=== PATIENT | male | born 1980 | race Caucasian/White ===

== ENCOUNTER 2016-07-31 15:59 | Emergency (ER) | payer MEDICAID ==
[~2016-07-31] VITALS: Ht 182.9 cm; Wt 67.9 kg
[~2016-07-31 15:59] MED LIST: HYOS0.122 PO; NO ROUTINE MEDS; ONDA4TAB7 PO
[2016-07-31 16:02] VITALS: Ht 182.9 cm; Wt 67.9 kg
--- OUTSIDE RECORDS SUMMARY | 2016-07-31 16:02 | XMS REPORT ---
Author Author Kasie Robbins [facility] eClinicalWorks Address Unknown Phone Unavailable Care Team Providers Care Napper Fixer Name Role Phone Kasie Robbins CP Unavailable Allergies No Known Allergies Problems Problem Type Condition Code Onset Dates Condition Status Problem Tobacco use disorder 305.1 Active Problem Bipolar disorder, unspecified F31.9 Active Problem Post-traumatic stress disorder, unspecified F43.10 Active Problem Anxiety disorder, unspecified F41.9 Active Medications No Known Medications Results No Known Results Summary Purpose eClinicalWorks Submission
--- OUTSIDE RECORDS SUMMARY | 2016-07-31 16:02 | XMS REPORT ---
Author Author Milla Rogers [facility] eClinicalWorks Address Unknown Phone Unavailable Care Team Providers Care Game Developer Name Role Phone Milla Rogers CP Unavailable Allergies No Known Allergies Problems Problem Type Condition Code Onset Dates Condition Status Problem Tobacco use disorder 305.1 Active Problem Bipolar disorder, unspecified F31.9 Active Problem Post-traumatic stress disorder, unspecified F43.10 Active Problem Anxiety disorder, unspecified F41.9 Active Medications No Known Medications Results No Known Results Summary Purpose eClinicalWorks Submission
--- OUTSIDE RECORDS SUMMARY | 2016-07-31 16:02 | XMS REPORT | Referral Summary ---
Author Author [facility] Organization [facility] Address Unknown Phone Unavailable Care Team Providers Care Professor Of Latin American Studies Name Role Phone Rocky Calloway Primary Care Physician [phone] Encounter [facility] [id number] Date(s): 04/18/15 - 04/18/15 [facility] [address] [place] [address] [place] Queved[place] [id number] Discharge Diagnosis: S/P lymph node biopsy Discharge Disposition: 01-Home or Self Care Attending Physician: Blaze Barrera MD Admitting Physician: Blaze Barrera MD Vital Signs Most recent to 1 oldest [Reference Range]: Temperature Tympanic 36.4 degC [36.6-38.1 degC] *LOW* (04/18/15 11:19 AM) Problem List Condition Effective Dates Status Health Status Informant Bipolar affect, Active depressed(Confirmed) PTSD (post-traumatic Active stress disorder)(Confirmed) Schizoaffective Active schizophrenia(Confir med) Tobacco Active patient user(Confirmed) Allergies, Adverse Reactions, Alerts Substance Reaction Severity Status morphine Adverse Reaction N V Active hallucinations Medications Flonase 2 sprays, Nasal, Daily, 0 Refill(s) Start Date: 05/16/14 Status: Ordered SEROquel 300 mg oral tablet 1 tabs, Oral, TID, 0 Refill(s) Start Date: 05/16/14 Status: Ordered traMADol 100 mg, Oral, Daily, Takes 150 mg at HS, 0 Refill(s) Start Date: 05/16/14 Status: Ordered Results No data available for this section Immunizations No data available for this section Procedures Procedure Date Related Diagnosis Body Site Acromioplasty1 09/01/07 Mini Incision Bursal Approach2 09/01/07 1Rt Shoulder Initally "Arthroscopic Examination Of Right Glenohumeral Joint With Partial Debridement of Subacromial Space Arthroscopically and Exposure Of The Coracoarcromial Ligament. The Procedure Was Switched To A Mini Incision Bursal Approach and Acromioplasty Was Carried Out With Section Of The Coracoacromial Ligament. DOS. See Conversion Document. 2Rt Shoulder Initally "Arthroscopic Examination Of Right Glenohumeral Joint With Partial Debridement of Subacromial Space Arthroscopically and Exposure Of The Coracoarcromial Ligament. The Procedure Was Switched To A Mini Incision Bursal Approach and Acromioplasty Was Carried Out With Section Of The Coracoacromial Ligament. DOS. See Conversion Document. Social History Social History Type Response Smoking Status Current every day smoker; Type: E-Cigarette Assessment and Plan Extracted from: Title: Office Visit Note Author: Monica Kay ENGLISH TUTOR Date: 04/18/15 Assessment/Plan 1.S/P lymph node biopsy Pathology, as called to you, is positive for a likely had scratched lymphadenitis. No sign of lymphoma or other concerns. There may always be a certain component of numbness "below" the incision. I am not surprised that the area below the incision is still somewhat tender/ bruised feeling. This discomfort should continue to improve over the next several weeks. Do not hesitate to return to our office if you have any questions or concerns. Continue with your general medical care through your primary care provider. Ordered: Postoperative Est 80122
--- OUTSIDE RECORDS SUMMARY | 2016-07-31 16:02 | XMS REPORT ---
Author Author Elma Chavez [facility] eClinicalWorks Address Unknown Phone Unavailable Care Team Providers Care Executive Administrative Asst Name Role Phone Elma Chavez CP Unavailable Allergies No Known Allergies Problems Problem Type Condition ICD-9 Code Onset Dates Condition Status Problem Posttraumatic stress disorder 309.81 Active Problem Anxiety state, unspecified 300.00 Active Problem Bipolar disorder, unspecified 296.80 Active Assessment Thyrotoxicosis without mention of goiter or other cause, without mention of thyrotoxic crisis or storm 242.90 Active Medications No Known Medications Procedures Procedure Coding System Code Date THYROID AUTOANTIBODIES 1 CPT-4 48260 November 29, 2014 THYROID AUTOANTIBODIES 2 CPT-4 28919 November 29, 2014 Results No Known Results Summary Purpose [employer] Submission
--- OUTSIDE RECORDS SUMMARY | 2016-07-31 16:02 | XMS REPORT ---
Author Author Johanna Lopez [facility] eClinicalWorks Address Unknown Phone Unavailable Care Team Providers Care Gang Leader Name Role Phone Johanna Lopez CP Unavailable Allergies, Adverse Reactions, Alerts Substance Reaction Event Type Morphine Sulfate nausea and vomiting Drug Allergy Problems Problem Type Condition ICD-9 Code Onset Dates Condition Status Problem Bipolar disorder, unspecified 296.80 Active Problem Posttraumatic stress disorder 309.81 Active Problem Tobacco use disorder 305.1 Active Assessment Other antipsychotics, neuroleptics, and major tranquilizers causing adverse effect in therapeutic use E939.3 Active Assessment Tobacco use disorder 305.1 Active Problem Anxiety state, unspecified 300.00 Active Assessment 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
--- OUTSIDE RECORDS SUMMARY | 2016-07-31 16:03 | XMS REPORT ---
Author Author Milla Rogers [facility] eClinicalWorks Address Unknown Phone Unavailable Care Team Providers Care Edge Bander Hand Name Role Phone Milla Rogers CP Unavailable Allergies No Known Allergies Problems Problem Type Condition Code Onset Dates Condition Status Problem Bipolar disorder, unspecified F31.9 Active Problem Anxiety disorder, unspecified F41.9 Active Problem Tobacco use disorder 305.1 Active Assessment Post-traumatic stress disorder, unspecified F43.10 Active Assessment Bipolar disorder, unspecified F31.9 Active Assessment Anxiety disorder, unspecified F41.9 Active Medications No Known Medications Procedures Procedure Coding System Code Date DUMMY CODE FOR NURSE VISIT CPT-4 DUMMY Dec 22, 2014 Results No Known Results Summary Purpose eClinicalWorks Submission
--- OUTSIDE RECORDS SUMMARY | 2016-07-31 16:03 | XMS REPORT | Referral Summary ---
Author Author [facility] Organization [facility] Address Unknown Phone Unavailable Care Team Providers Care Sleeve Turner Name Role Phone Rocky Calloway Primary Care Physician [phone] Encounter [facility] [id number] Date(s): 04/03/15 - 04/03/15 [facility] [address] [place] [address] [place] Queved[place] [id number] Discharge Diagnosis: Inguinal mass Discharge Disposition: 01-Home or Self Care Attending Physician: Blaze Barrera MD Admitting Physician: Blaze Barrera MD Vital Signs Most recent to 1 oldest [Reference Range]: Temperature Tympanic 36.8 degC [36.6-38.1 degC] (04/03/15 1:45 PM) Blood Pressure 112/66 mmHg [90-140/60-90 mmHg] (04/03/15 1:45 PM) Problem List Condition Effective Dates Status Health Status Informant Bipolar affect, Active depressed(Confirmed) PTSD (post-traumatic Active stress disorder)(Confirmed) Schizoaffective Active schizophrenia(Confir med) Tobacco Active patient user(Confirmed) Allergies, Adverse Reactions, Alerts Substance Reaction Severity Status morphine Adverse Reaction N V Active hallucinations Medications azithromycin 250 mg oral tablet 1 tabs, Oral, Daily, 500 mg for day one, then 250 mg for 4 days., # 4 tabs, 0 Refill(s), Pharmacy: [id number], 1 tabs Oral Daily,Instr:500 mg for day one, then 250 mg for 4 days. Start Date: 04/03/15 Status: Ordered azithromycin 500 mg oral tablet 500 mg 1 tabs, Oral, Daily, X 1 days, # 1 tabs, 0 Refill(s), Pharmacy: [id number], 1 tabs Oral Daily,x1 days Start Date: 04/03/15 Stop Date: 04/04/15 Status: Ordered Flonase 2 sprays, Nasal, Daily, 0 Refill(s) [...] Extracted from: Title: Office Visit Note Author: Blaze Barrera MD Date: 04/03/15 Assessment/Plan 1.Inguinal mass CT with oral and IV contrast Ordered: CT Abdomen Pelvis w/ Contrast Office New Consult Level 4 [id number] Orders: azithromycin, 1 tabs, Oral, Daily, 500 mg for day one, then 250 mg for 4 days., # 4 tabs, 0 Refill(s), Pharmacy: [id number], 1 tabs Oral Daily,Instr:500 mg for day one, then 250 mg for 4 days. azithromycin, 500 mg 1 tabs, Oral, Daily, X 1 days, # 1 tabs, 0 Refill(s), Pharmacy: [id number], 1 tabs Oral Daily,x1 days Plan:CT scan of abdomen pelvis with attention focused to leftmedial thigh/ inguinal region. Empiric treatment for possiblecat scratch disease. I did review the patient's chartincluding a recentER visit from March 30, 2015. I informed the patient that I did not think that he had a femoral herniasecondary to the anatomic location of thismass well below the inguinal ligamentand involving the leftmedial thigh region. Upon palpation I am able to appreciate several enlarged lymph nodes. I informed the patient that I would like to proceed with some further evaluation consisting of a CT scan of his abdomen pelviswith extension of the CT scan to hismedial thigh region. Recommend that we place askin marker overlying the palpable area of concern. Perhaps the patient does have a femoral hernia but I feel that this is unlikelygiven the fact the massis not present medial to the femoral vessels just beneath the inguinal ligamentas one typically would seewith a femoral hernia. We will await the CT scan results and proceed accordingly. I have had a few cases similarto this in the past where aindividual had presented with a firm massbeneath the inguinal ligamentthat was secondary toBartonella/cat scratch disease. I therefore elected to go ahead and treat him empiricallywith azithromycin/Z-Mart. As abovewe will await his CT scan results and proceed accordingly.
--- OUTSIDE RECORDS SUMMARY | 2016-07-31 16:03 | XMS REPORT | Continuity of Care Document ---
Author Author [facility] Organization [facility] Address Unknown Phone Unavailable Allergies Active Description Code Type Severity Reaction Onset Reported/Identified Relationship to Patient Clinical Status Yes morphine NKMA N/A Adverse Reaction N V hallucina 08/30/2013 Medications Problems Procedures Results Encounters ACCT No. Visit Date/Time Discharge Status Pt. Type Provider Facility Loc./Unit Complaint [id number] 04/11/2015 14:57:00 2014 23:59:00 DIS Outpatient Blaze Barrera [facility] EVAL. SURGICAL SITE L THIGH [id number] 04/03/2015 13:34:00 2014 23:59:00 DIS Outpatient Blaze Barrera [facility] HERNIA- ER LAST NIGHT. [id number] 05/16/2014 17:05:00 2014 23:59:00 DIS Outpatient Savannah Shah [facility] New IC CHEST CONGESTION,STUFFY NOSE BODY WEAKNESS [id number] 04/18/2015 11:10:00 ACT Outpatient Blaze Barrera [facility] Post Op
--- OUTSIDE RECORDS SUMMARY | 2016-07-31 16:03 | XMS REPORT | Continuity of Care Document ---
Author Author Lorenzo [facility] Organization [facility] Address Unknown Phone Unavailable Support Name Relationship Address Phone PRATIBHA SIDDIQUI MD Caregiver [address] [place] [address] [place] [address] Ricardo MERCER MD Caregiver [address] [place], [place] [id number] CRISTIAN PULIDO Next Of Kin [address] [place] [address] Insurance Providers Payer Name Policy Number Subscriber Name Relationship Self Pay Charissa Vu 18 Self Advance Directives Directive Response Recorded Date/Time Advanced Directives Type None 10/11/13 11:50am Dr Phillip Resuscitation Status Full Code 10/11/13 1:23pm Problems Medical Problems Problem Onset Date Status Nausea with Vomiting Unknown Active Headache Unknown Active Malaise and Fatigue not elsewhere classified Unknown Active Myalgia Unknown Active Hand paresthesia Unknown Active Hand paresthesia Unknown Active Penile discharge Unknown Active Viral syndrome Unknown Active Viral syndrome Unknown Active Medications Medication Dose Route Sig Days/Qty Instructions Order Date Discontinued Date Status Propoxyphene/Acetaminophen 1 Tab PO TWICE A DAY 03/20/10 10/13/10 Discontinued Metaxalone 1 Tab PO TWICE A DAY 03/20/10 10/13/10 Discontinued Divalproex Sodium 1 Tab PO DAILY 03/20/10 10/13/10 Discontinued Butalb/Acetaminophen/Caffeine 1 Tab PO NEEDED 10/13/10 07/12/12 Discontinued Fluticasone Propionate EA NOSTRIL DAILY 08/31/11 Active [Seroquel] PO 08/31/11 07/12/12 Discontinued Quetiapine Fumarate 900 Mg PO THREE TIMES A DAY 10/11/13 Active Trazodone HCl PO BEDTIME 03/24/14 Active Social History Social History Problem Response Recorded Date/Time Smoking Status Former smoker 10/12/2013 6:10am Chewing Tobacco Status No 10/12/2013 6:10am Hx Substance Use No 03/24/2014 3:29pm Hx Alcohol Use No 03/24/2014 3:29pm Has the pt used tobacco in the last 12 months Yes 10/12/2013 6:10am Query Response Start Date Stop Date Smoking Status Current every day smoker Hospital Discharge Instructions No hospital discharge instructions. Plan of Care No plan of care. Functional Status Query Response Date Recorded Physical Hygiene Self March 24, 2014 3:29pm Disabilities None March 24, 2014 3:29pm Devices Used Glasses March 24, 2014 3:29pm Dressing Self March 24, 2014 3:29pm Ambulation Self March 24, 2014 3:29pm Diet Self March 24, 2014 3:29pm Mental Status Alert Oriented March 24, 2014 4:11pm Disabilities None March 24, 2014 3:29pm Devices Used Glasses March 24, 2014 3:29pm Physical Hygiene Self March 24, 2014 3:29pm Dressing Self March 24, 2014 3:29pm Ambulation Self March 24, 2014 3:29pm Diet Self March 24, 2014 3:29pm Allergies, Adverse Reactions, Alerts Allergen Type Severity Reaction Status Last Updated Morphine Allergy Unknown Active 07/22/13 Immunizations Name Given Type Hx Influenza Vaccination Y feb 2013 Historical Hx Pneumococcal Vaccination No Historical Hx Tetanus, Diptheria, Pertussis Y 2007 Historical Hx Influenza Vaccination Y feb 2013 Historical Hx Tetanus, Diptheria, Pertussis Y 2007 Historical Vital Signs Acute Vital Signs Vital Response Date/Time Temperature (Fahrenheit) 97.2 deg F (96.8 - 99.1) Temperature (Calculated Celsius) 36.05876 degrees C (36.0 - 37.3) Pulse Rate (adult) 96 bpm (60 - 100) Respiratory Rate 16 breaths/min (10 - 20) O2 Sat by Pulse Oximetry 96 % (90 - 100) Blood Pressure 138/90 mm Hg Height 6 ft 1 in Weight 170 lb Body Mass Index 22.0 kg/m^2 Results Test Source Date Result Interp. Ref. Range Comments Group A Streptococcus Screen March 24, 2014 3:28pm Negative - Strep culture confirmation to follow Influenza Type A Antigen March 24, 2014 3:23pm Negative - Negative for Flu A protein antigen. Assay sensitivity is90%. Influenza Type B Antigen March 24, 2014 3:23pm Negative - Negative for Flu B protein antigen. Assay sensitivity is90%. Urine Bacteria February 10, 2014 3:20pm 2+ H - Has specimen been collected/obtained? Y Urine Bilirubin February 10, 2014 3:20pm Negative - Has specimen been collected/obtained? Y Urine Blood February 10, 2014 3:20pm 1+ H - Has specimen been collected/ obtained? Y Urine Calcium Oxalate Crystals February 10, 2014 3:20pm Many - Has specimen been collected/obtained? Y Urine Collection Type February 10, 2014 3:20pm Voided-not cc-midstr - Has specimen been collected/obtained? Y Urine Color February 10, 2014 3:20pm Yellow - Has specimen been collected/obtained? Y Urine Culture Indicated February 10, 2014 3:20pm Cult reflexed &setup - Has specimen been collected/obtained? Y Urine Glucose (UA) February 10, 2014 3:20pm Negative - Has specimen been collected/obtained? Y Urine Ketones February 10, 2014 3:20pm Negative - Has specimen been collected/obtained? Y Urine Leukocyte Esterase February 10, 2014 3:20pm Negative - Has specimen been collected/obtained? Y Urine Mucus February 10, 2014 3:20pm Present - Has specimen been collected/obtained? Y Urine Nitrite February 10, 2014 3:20pm Negative - Has specimen been collected/obtained? Y Urine Protein February 10, 2014 3:20pm Negative - Has specimen been collected/obtained? Y Urine RBC February 10, 2014 3:20pm 10-20 /HPF H - Has specimen been collected/obtained? Y Urine Specific [place] February 10, 2014 3:20pm >=1.030 H - Has specimen been collected/obtained? Y Urine Squamous Epithelial Cells February 10, 2014 3:20pm 0-5 - Has specimen been collected/obtained? Y Urine Turbidity February 10, 2014 3:20pm Sl cloudy - Has specimen been collected/obtained? Y Urine Urobilinogen February 10, 2014 3:20pm 0.2 EU/DL - Has specimen been collected/obtained? Y Urine WBC February 10, 2014 3:20pm 10-20 /HPF H - Has specimen been collected/obtained? Y Urine pH February 10, 2014 3:20pm 6.0 - Has specimen been collected/ obtained? Y Gram Stain Penis February 10, 2014 3:40pm Urine Culture Urine, Voided-Not Cc-Midstream February 10, 2014 4:02pm Mixed Sherin Prob. Contaminants Procedures No known history of procedures. Encounters Encounter Location Date/Time Departed Emergency Room [facility] 03/24/14 2:51pm Departed Emergency Room [facility] 02/10/14 3:06pm Recent Diagnosis
--- OUTSIDE RECORDS SUMMARY | 2016-07-31 16:03 | XMS REPORT ---
Author Author Elma Chavez [facility] eClinicalWorks Address Unknown Phone Unavailable Care Team Providers Care Staffing Branch Manager Name Role Phone Elma Chavez CP Unavailable Allergies No Known Allergies Problems Problem Type Condition ICD-9 Code Onset Dates Condition Status Problem Bipolar disorder, unspecified 296.80 Active Problem Posttraumatic stress disorder 309.81 Active Problem Tobacco use disorder 305.1 Active Problem Anxiety state, unspecified 300.00 Active Medications No Known Medications Results No Known Results Summary Purpose eClinicalWorks Submission
--- OUTSIDE RECORDS SUMMARY | 2016-07-31 16:03 | XMS REPORT | Referral Summary ---
Author Organization Unknown Address Unknown Phone Unavailable Care Team Providers Care Radar Systems Engineer Name Role Phone Rocky Calloway Primary Care Physician [phone] Encounter [facility] [id number] Date(s): 05/16/14 - 05/16/14 [facility] [address] [place] [address]- Discharge Diagnosis: COUGH Discharge Disposition: Home or Self Care Attending Physician: Savannah Shah APRN Admitting Physician: Savannah Shah APRN Referring Physician: Willie Calloway MD Vital Signs Most recent to 1 oldest [Reference Range]: Temperature Tympanic 37.1 degC [36.6-38.1 degC] (05/16/14 5:45 PM) Peripheral Pulse 122 bpm Rate [60-100 bpm] *HI* (05/16/14 5:45 PM) Blood Pressure 124/88 mmHg [90-140/60-90 mmHg] (05/16/14 5:45 PM) Most recent to 1 oldest [Reference Range]: SpO2 95 % (05/16/14 5:45 PM) Problem List Condition Effective Dates Status Health Status Informant Tobacco Active patient user(Confirmed) Allergies, Adverse Reactions, Alerts Substance Reaction Severity Status morphine Adverse Reaction N V Active hallucinations Medications Flonase 2 sprays, Nasal, Daily, 0 Refill(s) Start Date: 05/16/14 Status: Ordered SEROquel 300 mg oral tablet 1 tabs, Oral, TID, 0 Refill(s) Start Date: 05/16/14 Status: Ordered traMADol 100 mg, Oral, Daily, Takes 150 mg at HS, 0 Refill(s) Special Instructions: Takes 150 mg at HS Start Date: 05/16/14 Status: Ordered Zithromax Z-Mart 250 mg oral tablet 1 packets, Oral, Daily, as directed on package labeling, X 5 days, # 6 tabs, 0 Refill(s), Pharmacy: [id number], 1 packets Oral Daily,x5 days,Instr: as directed on package labeling Special Instructions: as directed on package labeling Start Date: 05/16/14 Stop Date: 05/21/14 Status: Ordered Results No data available for this section Immunizations No data available for this section Procedures No data available for this section Social History Social History Type Response Smoking Status Current every day smoker; Type: E-Cigarette Assessment and Plan No data available for this section
--- OUTSIDE RECORDS SUMMARY | 2016-07-31 16:03 | XMS REPORT ---
Author Author Milla Rogers Organization eClinicalWorks Address Unknown Phone Unavailable Care Team Providers Care Packaging Designer Name Role Phone Milla Rogers CP Unavailable Allergies No Known Allergies Problems Problem Type Condition ICD-9 Code Onset Dates Condition Status Problem Bipolar disorder, unspecified 296.80 Active Problem Posttraumatic stress disorder 309.81 Active Problem Tobacco use disorder 305.1 Active Problem Anxiety state, unspecified 300.00 Active Medications Medication Code System Code Instructions Start Date End Date Status Dosage Seroquel XR [facility] [address]-29 300 MG Orally Once a day Jan 05, 2015 2 tablets in the evening Trihexyphenidyl HCl [facility] [address]-62 2 MG Orally every evening with Seroquel XR Jan 05, 2015 2 tablets Results No Known Results Summary Purpose eClinicalWorks Submission
--- OUTSIDE RECORDS SUMMARY | 2016-07-31 16:03 | XMS REPORT ---
Author Author Elma Chavez Organization eClinicalWorks Address Unknown Phone Unavailable Care Team Providers Care Linen Room Supervisor Name Role Phone Elma Chavez CP Unavailable Allergies, Adverse Reactions, Alerts Substance Reaction Event Type Morphine Sulfate nausea and vomiting Drug Allergy Problems Problem Type Condition Code Onset Dates Condition Status Problem Anxiety disorder, unspecified F41.9 Active Assessment Bipolar disorder, unspecified 296.80 Active Problem Bipolar disorder, unspecified F31.9 Active Assessment Screening for lipoid disorders V77.91 Active Assessment Screening for diabetes mellitus V77.1 Active Assessment Posttraumatic stress disorder 309.81 Active Assessment Anxiety state, unspecified 300.00 Active Medications No Known Medications Procedures Procedure Coding System Code Date LIPID PANEL CPT-4 95662 November 16, 2014 COMPLETE CBC W/AUTO DIFF WBC CPT-4 90440 November 16, 2014 URINALYSIS, IN HOUSE CPT-4 38844 November 16, 2014 TSH CPT-4 77047 November 16, 2014 COMPREHENSIVE METABOLIC PANEL CPT-4 90749 November 16, 2014 OFFICE VISIT, EST-LOW COMPLEXITY (15 MIN.) CPT-4 66025 November 16, 2014 Vital Signs Date/Time: November 16, 2014 Height 71.0 in Weight 165.8 lbs Temperature 98.6 F Blood Pressure Diastolic 86 mm Hg Blood Pressure Systolic 126 mm Hg Cardiac Monitoring Heart Rate 104 /min BMI 23.12 Index Respiratory Rate 14 /min Results No Known Results Summary Purpose eClinicalWorks Submission
--- OUTSIDE RECORDS SUMMARY | 2016-07-31 16:03 | XMS REPORT ---
Author Author Milla Rogers Organization [employer] Address Unknown Phone Unavailable Care Team Providers Care Aircraft Ordnance Technician Name Role Phone Milla Rogers CP Unavailable Allergies, Adverse Reactions, Alerts Substance Reaction Event Type Morphine Sulfate nausea and vomiting Drug Allergy Haldol EPS, tongue swelling Drug Allergy Problems Problem Type Condition ICD-9 Code Onset Dates Condition Status Problem Bipolar disorder, unspecified 296.80 Active Problem Posttraumatic stress disorder 309.81 Active Problem Tobacco use disorder 305.1 Active Assessment Posttraumatic stress disorder 309.81 Active Assessment Anxiety state, unspecified 300.00 Active Problem Anxiety state, unspecified 300.00 Active Assessment Bipolar disorder, unspecified 296.80 Active Medications Medication Code System Code Instructions Start Date End Date Status Dosage Seroquel XR [facility] [address]-54 50 MG, increasing to 600mg Orally Once a day Jan 05, 2015 1 tablet in the evening Trihexyphenidyl HCl [facility] [address]-83 2 MG Orally every evening with Seroquel XR for EPS Jan 05, 2015 1 tablet Procedures Procedure Coding System Code Date OFFICE VISIT, POCKET MAKER-MOD. COMPLEXITY (45 MIN.) CPT-4 25542 Jan 05, 2015 Vital Signs Date/Time: Jan 05, 2015 Height 71.0 in Weight 163.8 lbs Temperature 99.2 F Blood Pressure Diastolic 86 mm Hg Blood Pressure Systolic 138 mm Hg Cardiac Monitoring Heart Rate 88 /min BMI 22.84 Index Respiratory Rate 18 /min Results No Known Results Summary Purpose [employer] Submission
--- OUTSIDE RECORDS SUMMARY | 2016-07-31 16:03 | XMS REPORT | Continuity of Care Document ---
Author Author [facility] Organization [facility] Address Unknown Phone Unavailable Care Team Providers Care Behavioral Interventionist Name Role Phone Ricardo MERCER MD Primary Care Physician [phone] Insurance Providers Payer Name Policy Number Subscriber Name Relationship Self Pay Charissa Vu 18 Self Advance Directives Directive Response Recorded Date/Time Advanced Directives Type None 10/11/13 11:50am Ordered Resuscitation Status Full Code 10/11/13 1:23pm Problems Medical Problems Problem Onset Date Status Nausea with Vomiting Unknown Active Headache Unknown Active Malaise and Fatigue not elsewhere classified Unknown Active Myalgia Unknown Active Hand paresthesia Unknown Active Hand paresthesia Unknown Active Penile discharge Unknown Active Medications Medication Dose Route Sig [...] [Seroquel] PO 08/31/11 07/12/12 Discontinued Quetiapine Fumarate 300 Mg PO THREE TIMES A DAY 10/11/13 Active Doxycycline Monohydrate 1 Tab PO TWICE A DAY 7 Days 02/10/14 Active Social History Social History Problem Response Recorded Date/Time Smoking Status Former smoker 10/12/2013 6:10am Chewing Tobacco Status No 10/12/2013 6:10am Hx Substance Use No 02/10/2014 4:52pm Hx Alcohol Use No 02/10/2014 4:52pm Has the pt used tobacco in the last 12 months Yes 10/12/2013 6:10am Query Response Start Date Stop Date Smoking Status Current every day smoker Hospital Discharge Instructions No hospital discharge instructions. Plan of Care No plan of care. Functional Status Query Response Date Recorded Physical Hygiene Self February 10, 2014 4:52pm Disabilities None February 10, 2014 4:52pm Devices Used None February 10, 2014 4:52pm Dressing Self February 10, 2014 4:52pm Ambulation Self February 10, 2014 4:52pm Diet Self February 10, 2014 4:52pm Mental Status Alert Oriented February 10, 2014 4:52pm Disabilities None February 10, 2014 4:52pm Devices Used None February 10, 2014 4:52pm Physical Hygiene Self February 10, 2014 4:52pm Dressing Self February 10, 2014 4:52pm Ambulation Self February 10, 2014 4:52pm Diet Self February 10, 2014 4:52pm Allergies, Adverse Reactions, Alerts Allergen Type Severity Reaction Status Last Updated Morphine Allergy Unknown Active 07/22/13 Immunizations Name Given Type Hx Influenza Vaccination Y feb 2013 Historical Hx Pneumococcal Vaccination No Historical Hx Tetanus, Diptheria, Pertussis Y 2007 Historical Hx Influenza Vaccination Y feb 2013 Historical Hx Tetanus, Diptheria, Pertussis Y 2007 Historical Vital Signs Acute Vital Signs Vital Response Date/Time Temperature (Fahrenheit) 98.2 deg F (96.8 - 99.1) Temperature (Calculated Celsius) 36.69687 degrees C (36.0 - 37.3) Pulse Rate (adult) 88 bpm (60 - 100) Respiratory Rate 16 breaths/min (10 - 20) O2 Sat by Pulse Oximetry 96 % (90 - 100) Blood Pressure 148/82 mm Hg Height 6 ft 1 in Weight 180 lb Body Mass Index 23.0 kg/m^2 Results Test Source Date Result Interp. Ref. Range Comments Urine Bacteria February 10, 2014 3:20pm 2+ [...] Has specimen been collected/obtained? Y Urine Specific [place] February 10, 2014 3:20pm >=1.030 H - [...] Gram Stain Penis February 10, 2014 3:40pm Procedures No known history of procedures. Encounters Encounter Location Date/Time Departed Emergency Room [facility] 02/10/14 3:06pm Recent Diagnosis
--- OUTSIDE RECORDS SUMMARY | 2016-07-31 16:03 | XMS REPORT | Continuity of Care Document ---
Author Author [facility] Organization [facility] Address Unknown Phone Unavailable Support Name Relationship Address Phone PRATIBHA SIDDIQUI MD Caregiver [address] [place] [address] [place] [address] Unavailable CRISTIAN PULIDO Next Of Kin [address] [place], [place] [id number] Insurance Providers Guarantor Charissa Vu Address [address] [place] [address] Email [email or web address] Payer [facility] Community Plan Policy Number [id number] Subscriber's Name Charissa Vu Relationship 18 Self Effective Date 15 Expiration Date 15 Advance Directives Directive Response Recorded Date/Time Advanced Directives Type None 10/11/13 11:50am Ordered Resuscitation Status Full Code 10/11/13 1:23pm Chief Complaint and Reason for Visit Chief Complaint Lower Extremity Injury Reason for Visit [id number] Problems Active Problems Medical Problem Onset Date Status Contusion of right hand Unknown Acute External hemorrhoids Unknown Acute Eyebrow laceration Unknown Acute Fall Unknown Acute Hand laceration Unknown Acute Hand paresthesia Unknown Acute Hand paresthesia Unknown Acute Headache Unknown Acute Hernia, femoral Unknown Acute Malaise and Fatigue not elsewhere classified Unknown Acute Minor head injury Unknown Acute Minor head injury Unknown Acute Minor head injury Unknown Acute Myalgia Unknown Acute Nausea with Vomiting Unknown Acute Penile discharge Unknown Acute Toe contusion Unknown Acute Trapezius muscle spasm Unknown Acute Viral syndrome Unknown Acute Viral syndrome Unknown Acute Medications Current Home Medications Medication Dose Units Route Directions Days Qty Instructions Start Date Hydrocodone/Acetaminophen ([place] 5-325 Tablet) 1 Each Tablet 1 Tab Oral Every 6 Hours for Pain 15 Tablet 09/19/15 Quetiapine Fumarate (Seroquel) 300 Mg Tablet 300 Mg Oral Three Times A Day 03/30/15 Trazodone Hcl 150 Mg Tablet 150 Mg Oral Bedtime 08/28/15 Past Home Medications Medication Directions Ordered Status Azithromycin 500 Mg Tablet, 1 Tab Oral As Directed 04/05/15 Discontinued Butalb/Acetaminophen/Caffeine (Fioricet Tablet) 1 Tab Tablet, 1 Tab Oral As Needed 10/13/10 Discontinued Divalproex Sodium (Depakote) 250 Mg Tablet.dr, 1 Tab Oral Daily 03/20/10 Discontinued Metaxalone (Skelaxin) 800 Mg Tablet, 1 Tab Oral Twice A Day 03/20/10 Discontinued Propoxyphene/Acetaminophen (Darvocet-N 100 Tablet) 1 Tab Tablet, 1 Tab Oral Twice A Day 03/20/10 Discontinued Seroquel , Oral 08/31/11 Discontinued Social History Social History Problem Response Recorded Date/Time Onset Date Status Chewing Tobacco Status No 10/12/2013 6:10am Not Applicable Not Applicable Hx Substance Use Y MARIJUANA APPROX. A BOWL 3X/DAY 09/19/2015 3:50pm Not Applicable Not Applicable Hx Alcohol Use Y OCCASSIONAL 09/19/2015 3:50pm Not Applicable Not Applicable Has the pt used tobacco in the last 12 months Yes 04/05/2015 4:34pm Not Applicable Not Applicable Tobacco Usage smoke 07/22/2013 11:17am Not Applicable Not Applicable Query Response Start Date Stop Date Smoking Status Former smoker Hospital Discharge Instructions No hospital discharge instructions. Plan of Care Discharge Date 09/19/15 5:38pm Disposition 01 DISCHARGED HOME, SELF-CARE Condition at Discharge Improved Instructions/Education Provided Contusion Prescriptions See Medication Section Referrals Ricardo MERCER MD Address: [address] [place] [id number] Additional Instructions/Education Take ibuprofen 800 mg every 8 hours with food for pain. May take [place] 5/325mg, one tab every 6 hours as needed for pain. Elevate and ice foot/toe for the next 48 hours. Wear post-op shoe as directed. Follow treatment plan. Follow with PCP in one week if symptoms are not improving. Care Plan and Goals Physician Care Plan Problem: Toe Contusion Goal: Follow up with primary care provider Instructions: Take medications and follow care plan as discussed/written Functional Status No functional status results. Allergies, Adverse Reactions, Alerts Allergen Type Severity Reaction Status Last Updated Haloperidol Allergy Unknown TREMORS Active 09/04/15 Morphine Allergy Unknown Active 09/04/15 Immunizations Query Response on File Recorded Date/Time Hx Influenza Vaccination No 04/05/15 4:34pm Hx Pneumococcal Vaccination No 04/05/15 4:34pm Hx Tetanus, Diptheria, Pertussis Y 200712/26/14 11:16am Hx Influenza Vaccination No 04/05/15 4:34pm Hx Tetanus, Diptheria, Pertussis Y 200712/26/14 11:16am DTaP Vaccine History 201309/19/15 3:50pm Influenza Vaccine Hx NOT REC'D 09/19/15 3:50pm Tdap Vaccine Hx 201108/28/15 2:27am Vital Signs Acute Vital Signs Vital Response Date/Time Temperature (Fahrenheit) 98.6 deg F (96.8 - 99.1) 09/19/2015 5:38pm Temperature (Calculated Celsius) 37.97887 degrees C (36.0 - 37.3) 09/19/2015 5:38pm Pulse Rate (adult) 91 bpm (60 - 100) 09/19/2015 5:38pm Respiratory Rate 19 breaths/min (10 - 20) 09/19/2015 5:38pm O2 Sat by Pulse Oximetry 99 % (90 - 100) 09/19/2015 5:38pm Blood Pressure 120/82 mm Hg 09/19/2015 5:38pm Height (Feet) 6 feet 09/19/2015 3:50pm Height (Inches) 1.00 inches 09/19/2015 3:50pm Weight (Kilograms) 71.400 kg 09/19/2015 3:50pm Body Mass Index (BMI) 20.0 09/19/2015 3:50pm Results Name: CHARISSA VU Unit #: [id number] : 1980 Sex: M Admit Date: Loc / Svc: ED Discharge Date: DIAGNOSTIC IMAGING REPORT Report #: [id number] [facility] FRANCESCA [place] Indication: ITS.REASON: painful great toe and pain over 1st metatarsal PROCEDURE: FOOT RIGHT 3 VIEWS: Encounter: Initial Comparison: None Findings: Tiny transverse lucency in the tuft of the great toe distal phalanx. No additional area concerning for acute fracture or dislocation. Chronic appearing deformity of the distal phalanx of the fifth toe probably due to old trauma. Impression: Tiny lucency in the great toe distal phalanx could represent a nondisplaced fracture or artifact. Recommend correlation for focal tenderness. . Procedures Procedure Status Date Provider(s) INJECTION FOR HIP X-RAY Completed 07/04/15 MRI JOINT OF LWR EXTR W/DYE Completed 07/04/15 NEEDLE LOCALIZATION BY XRAY Completed 07/04/15 GADAVIST 10ML SDV - Contrast,Gadavist 10ml Completed 07/04/15 759392"INFUSION, NORMAL SALINE SOLUTION , 250 CC" Completed 07/04/15 985262"HIGH OSMOLAR CONTRAST MATERIAL, 250-299 MG/ML IODINE Completed X-RAY EXAM OF HAND Completed 08/28/15 EMERGENCY DEPT VISIT Completed 08/28/15 212522"PREFABRICATED, INCLUDES FITTING AND ADJUSTMENT" Completed 08/28/15 THER/PROPH/DIAG INJ SC/IM Completed 09/04/15 THER/PROPH/DIAG INJ SC/IM Completed 09/04/15 EMERGENCY DEPT VISIT Completed 09/04/15 351498"INJECTION, KETOROLAC TROMETHAMINE, PER 15 MG" Completed 09/04/15 567005"INJECTION, ORPHENADRINE CITRATE, UP TO 60 MG" Completed 09/04/15 Encounters Encounter Location Arrival/Admit Date Discharge/Depart Date Attending Provider Registered Emergency Room [facility] 09/19/15 3:02pm PRATIBHA SIDDIQUI MD Departed Emergency Room [facility] 09/04/15 8:38pm 09/04/15 9: 29pm NUZHAT HAYES MD Departed Emergency Room [facility] 08/28/15 2:22am 08/28/15 3: 20am CARLY MARTINEZ MD Registered Clinic [facility] 07/04/15 8:19am BURT MARLEY MD Recent Diagnosis
--- OUTSIDE RECORDS SUMMARY | 2016-07-31 16:03 | XMS REPORT | Referral Summary ---
Author Author [facility] Organization [facility] Address Unknown Phone Unavailable Care Team Providers Care Education Officer Name Role Phone Rocky Calloway Primary Care Physician [phone] Encounter [facility] [id number] Date(s): 04/11/15 - 04/11/15 [facility] [address] [place] [address] [place] Quevedo [id number] Discharge Diagnosis: Post-operative state Discharge Diagnosis: Lymphadenitis Discharge Disposition: 01-Home or Self Care Attending Physician: Blaze Barrera MD Admitting Physician: Blaze Barrera MD Vital Signs Most recent to 1 oldest [Reference Range]: Temperature Tympanic 36.5 degC [36.6-38.1 degC] *LOW* (04/11/15 3:04 PM) Problem List Condition Effective Dates Status [...] 0 Refill(s) Start Date: 05/16/14 Status: Ordered Zithromax 250 mg oral tablet 1 tabs, Oral, Daily, X 5 days, # 5 tabs, 0 Refill(s), Pharmacy: [id number], 1 tabs Oral Daily,x5 days Start Date: 04/11/15 Stop Date: 04/16/15 Status: Ordered Results No data available for [...] Visit Note Author: Blaze Barrera MD Date: 04/11/15 Assessment/Plan 1.Post-operative state Ordered: Postoperative Est 60939 2.Lymphadenitis Ordered: Postoperative Est 50260 Orders: azithromycin, 1 tabs, Oral, Daily, X 5 days, # 5 tabs, 0 Refill(s), Pharmacy: [id number], 1 tabs Oral Daily,x5 days Plan:I informed the patient that is not unusual to havea little "numbness" beneath a surgical incision site. This typically will improve over several months in duration. Patient was informed that fortunately his pathology report returned revealing no evidence for lymphomaunderlying malignant process. Pathology was consistent with that of probablecat scratch disease. Does seem to have improved withantibiotic therapy. Go ahead and give him an additionalweek worth ofantibiotic therapy given the fact that he still has some residual adenopathy noted. Patient was informed that there are any further concerns he was to follow-up with me in the office. If he continued to have ongoing inguinal pain/discomfortor if his numbness failedto improve he was to return back to the office for further evaluation.
--- OUTSIDE RECORDS SUMMARY | 2016-07-31 16:03 | XMS REPORT | Continuity of Care Document ---
Author Author KE [place] Organization [facility] Address Unknown Phone Unavailable Support Name Relationship Address Phone BROCK SIDDIQUI MD Caregiver [address] [place] [address] [place] [address] Unavailable SADI MODI Caregiver [address] [place] [address] Unavailable TESS CRISTIAN Next Of Kin [address] [place] [address] Insurance Providers Guarantor Charissa Vu Address [address] [place] [address] Email [email or web address] Payer [employer] Policy Number [id number] Subscriber's Name Charissa Vu Relationship 18 Self Effective Date 15 Expiration Date 15 Advance Directives Directive Response Recorded Date/Time Advanced Directives Type None 10/11/13 11:50am Ordered Resuscitation Status Full Code 10/11/13 1:23pm Chief Complaint and Reason for Visit Chief Complaint Fall Reason for Visit Strain of right knee Sprain of right wrist Problems Active Problems Medical Problem Onset Date [...] Unknown Acute Nausea with Vomiting Unknown Acute Paraplegia Unknown Penile discharge Unknown Acute Trapezius muscle spasm Unknown Acute Viral syndrome Unknown Acute Viral syndrome Unknown Acute Past Problems Medical Problem Onset Date Constipation Unknown Mild dehydration Unknown Sprain of right wrist Unknown Strain of right knee Unknown Toe contusion Unknown Medications Current Home Medications Medication Dose Units Route Directions Days Qty Instructions Start Date Hydrocodone/Acetaminophen (Burnham 5-325 Tablet) 5-325 Tablet 1-2 Tab Oral Q6h/0300,0900,1500,2100 as needed for Pain 20 Tablet 10/31/15 No Routine Meds 10/12/15 Past Home Medications Medication Directions Ordered Status [...] Applicable Not Applicable Hx Substance Use Y QUARTER OZ EVERY 2 WEEKS, MARIJUANA OCC 10/31/2015 9:25am Not Applicable Not Applicable Hx Alcohol Use Y TWICE PER WK 10/31/2015 9:25am Not Applicable Not Applicable Has the pt used tobacco in the last 12 months Yes 04/05/2015 4:34pm Not Applicable Not Applicable Tobacco Usage smoke 07/22/2013 11:17am Not Applicable Not Applicable Query Response Start Date Stop Date Smoking Status Former smoker Hospital Discharge Instructions No hospital discharge instructions. Plan of Care Discharge Date 10/31/15 11:37am Disposition 01 DISCHARGED HOME, SELF-CARE Condition at Discharge Improved Instructions/Education Provided Wrist Sprain Knee Sprain How To Perform RICE (Rest, Ice, Compress, Elevate) Prescriptions See Medication Section Referrals your physician Order Date: 2 Days Note: Additional Instructions/Education Rest. Keep knee and wrist above the level of the heart as much as possible. Burnham 5/325 1-2 every 6 hours as needed for pain. Use wrist splint until your doctor releases you. Care Plan and Goals Physician Care Plan Problem: right wrist sprain, right knee strain. Goal: Follow up with primary care provider Instructions: Take medications and follow care plan as discussed/written Functional Status No functional status results. Allergies, Adverse Reactions, Alerts Allergen Type Severity Reaction Status Last Updated Haloperidol Allergy Unknown TREMORS Active 10/31/15 Morphine Allergy Unknown Active 10/31/15 Immunizations Query Response on File Recorded Date/Time Hx Influenza Vaccination No 04/05/15 4:34pm Hx Pneumococcal Vaccination No 04/05/15 4:34pm Hx Tetanus, Diptheria, Pertussis Y 200712/26/14 11:16am Hx Influenza Vaccination No 04/05/15 4:34pm Hx Tetanus, Diptheria, Pertussis Y 200712/26/14 11:16am DTaP Vaccine History 201310/31/15 9:25am Influenza Vaccine Hx NOT REC'D 10/31/15 9:25am Tdap Vaccine Hx 201108/28/15 2:27am Vital Signs Acute Vital Signs Vital Response Date/Time Temperature (Fahrenheit) 99.0 deg F (96.8 - 99.1) 10/31/2015 11:37am Temperature (Calculated Celsius) 37.82295 degrees C (36.0 - 37.3) 10/31/2015 11:37am Pulse Rate (adult) 94 bpm (60 - 100) 10/31/2015 11:37am Respiratory Rate 16 breaths/min (10 - 20) 10/31/2015 11:37am O2 Sat by Pulse Oximetry 96 % (90 - 100) 10/31/2015 11:37am Blood Pressure 139/85 mm Hg 10/31/2015 11:37am Height (Feet) 6 feet 10/31/2015 9:25am Height (Inches) 1.00 inches 10/31/2015 9:25am Weight (Kilograms) 69.400 kg 10/31/2015 9:25am Body Mass Index (BMI) 20.0 10/31/2015 9:25am Results Laboratory Results Test Name Result Units Flags Reference Collection Date/Time Result Date/ Time Comments White Blood Count 13.5 T/MM3 H 4.5-11.0 10/12/2015 9:03pm 10/12/2015 9: 33pm Red Blood Count 4.04 M/MM3 L 4.50-5.90 10/12/2015 9:03pm 10/12/2015 9: 33pm Hemoglobin 12.9 GM/DL L 13.5-17.5 10/12/2015 9:03pm 10/12/2015 9:33pm Hematocrit 37.5 % L 41-53 10/12/2015 9:03pm 10/12/2015 9:33pm Mean Corpuscular Volume 92.8 UM3 80-100 10/12/2015 9:03pm 10/12/2015 9: 33pm Mean Corpuscular Hemoglobin 31.9 UUG 26-34 10/12/2015 9:03pm 2015 9:33pm Mean Corpuscular Hemoglobin Concent 34.4 GM/DL 31-37 10/12/2015 9:03pm 10/12/2015 9:33pm RDW Standard Deviation 48.5 FL 36.9-50.2 10/12/2015 9:03pm 10/12/2015 9 :33pm Platelet Count 204 T/MM3 130-400 10/12/2015 9:03pm 10/12/2015 9:33pm Mean Platelet Volume 9.9 UM3 9.4-12.4 10/12/2015 9:03pm 10/12/2015 9: 33pm Neutrophils % (Manual) 81.0 % H 33-66 10/12/2015 9:03pm 10/12/2015 9: 35pm Band Neutrophils % 4.0 % 0-6 10/12/2015 9:03pm 10/12/2015 9:35pm Lymphocytes % (Manual) 8.0 % L 23-45 10/12/2015 9:03pm 10/12/2015 9: 35pm Monocytes % (Manual) 6.0 % 0-9.0 10/12/2015 9:03pm 10/12/2015 9:35pm Eosinophils % (Manual) 1.0 % 0-4 10/12/2015 9:03pm 10/12/2015 9:35pm Band Neutrophils # 0.5 T/MM3 10/12/2015 9:03pm 10/12/2015 9:35pm Absolute Neutrophils (Manual) 10.9 T/MM3 H 1.8-7.7 10/12/2015 9:03pm 02/2016 9:35pm Lymphocytes # (Manual) 1.1 T/MM3 1-4.8 10/12/2015 9:03pm 10/12/2015 9: 35pm Monocytes # (Manual) 0.8 T/MM3 0-0.8 10/12/2015 9:03pm 10/12/2015 9: 35pm Eosinophils # (Manual) 0.1 T/MM3 0-0.5 10/12/2015 9:03pm 10/12/2015 9: 35pm Red Cell Morphology Comment NORMAL 10/12/2015 9:03pm 10/12/2015 9: 35pm Icterus Index < 2 0-7 10/12/2015 9:03pm 10/12/2015 9:45pm Chemistry Specimen Hemolysis < 15 0-25 10/12/2015 9:03pm 10/12/2015 9 :45pm 0-25: Specimen Exhibited No Hemolysis. Turbidity < 20 0-20 10/12/2015 9:03pm 10/12/2015 9:45pm Sodium Level 143 MEQ/L 134-144 10/12/2015 9:03pm 10/12/2015 9:45pm Potassium Level 3.6 MEQ/L 3.6-5 10/12/2015 9:03pm 10/12/2015 9:45pm Chloride Level 106 MEQ/L 98-107 10/12/2015 9:03pm 10/12/2015 9:45pm Carbon Dioxide Level 26 MEQ/L 22-30 10/12/2015 9:03pm 10/12/2015 9: 45pm Anion Gap 11 MEQ/L 5-15 10/12/2015 9:03pm 10/12/2015 9:45pm Blood Urea Nitrogen 19.0 MG/DL 9-10/12/2015 9:03pm 10/12/2015 9: 45pm Creatinine 0.8 MG/DL 0.8-1.5 10/12/2015 9:03pm 10/12/2015 9:45pm BUN/Creatinine Ratio 24 RATIO 6-26 10/12/2015 9:03pm 10/12/2015 9:45pm Glomerular Filtration Rate Calc 109 10/12/2015 9:03pm 10/12/2015 9: 45pm Glucose Level 99 MG/DL 75-110 10/12/2015 9:03pm 10/12/2015 9:45pm Calculated Osmolality 277 MOSM/KG 261-280 10/12/2015 9:03pm 10/12/2015 9:45pm Calcium Level 9.2 MG/DL 8.4-10.2 10/12/2015 9:03pm 10/12/2015 9:45pm Total Bilirubin 0.40 MG/DL 0.20-1.30 10/12/2015 9:03pm 10/12/2015 9: 45pm Alkaline Phosphatase 83 U/L 38-126 10/12/2015 9:03pm 10/12/2015 9:45pm Total Protein 6.7 G/DL 6.3-8.2 10/12/2015 9:03pm 10/12/2015 9:45pm Albumin 4.1 G/DL 3.5-5.0 10/12/2015 9:03pm 10/12/2015 9:45pm Globulin 2.6 G/DL 2.4-3.6 10/12/2015 9:03pm 10/12/2015 9:45pm Albumin/Globulin Ratio 1.6 RATIO 1.1-2.2 10/12/2015 9:03pm 10/12/2015 9 :45pm Aspartate Amino Transf (AST/SGOT) 24 U/L 17-59 10/12/2015 9:03pm 2015 9:45pm Alanine Aminotransferase (ALT/SGPT) 18 U/L L 21-72 10/12/2015 9:03pm 02/2016 9:45pm Lipase 33 U/L 23-300 10/12/2015 9:03pm 10/12/2015 9:45pm Plasma Lactate 0.9 MMOL/L 0.6-2.2 10/12/2015 9:02pm 10/12/2015 9:43pm Procalcitonin < 0.05 NG/ML 10/12/2015 9:03pm 10/12/2015 9:42pm PCT < /=0.5 ng/mL - sepsis not likely; PCT >0.5 and </=2 ng/mL - sepsis possible; PCT >2 ng/mL - sepsis likely; PCT >/=10 ng/mL - systemic inflammatory response - sepsis or septic shock highly indicated. Urine Collection Type CLEANCATCH-MIDSTREAM 10/12/2015 10:03pm 10/11 10:12pm Urine Color BROWN YELLOW 10/12/2015 10:03pm 10/12/2015 10:12pm Urine Turbidity CLEAR CLEAR 10/12/2015 10:03pm 10/12/2015 10:12pm Urine Specific Coy >=1.030 H 1.015-1.025 10/12/2015 10:03pm 2015 10:12pm Urine pH 5.5 5.0-8.0 10/12/2015 10:03pm 10/12/2015 10:12pm Urine Leukocyte Esterase NEGATIVE NEGATIVE 10/12/2015 10:03pm 2015 10:12pm Urine Nitrite NEGATIVE NEGATIVE 10/12/2015 10:03pm 10/12/2015 10: 12pm Urine Protein NEGATIVE NEGATIVE 10/12/2015 10:03pm 10/12/2015 10: 12pm Urine Glucose (UA) NEGATIVE NEGATIVE 10/12/2015 10:03pm 10/12/2015 10 :12pm Urine Ketones TRACE A NEGATIVE 10/12/2015 10:03pm 10/12/2015 10:12pm Urine Urobilinogen 0.2 EU/DL NORMAL 10/12/2015 10:03pm 10/12/2015 10: 12pm Urine Bilirubin 1+ A NEGATIVE 10/12/2015 10:03pm 10/12/2015 10:12pm Urine Blood NEGATIVE NEGATIVE 10/12/2015 10:03pm 10/12/2015 10:12pm Urinalysis Comment MICROSCOPIC NOT IND. 10/12/2015 10:03pm 2015 10:12pm Microbiology Results Procedure Source Organism/Result Collection Date/Time Result Date/Time Result Status Blood Culture Peripheral/Iv Start NO GROWTH AFTER 5 DAYS 10/12/2015 9:06pm 10/17/2015 9:09pm Final Name: CHARISSA VU Unit #: [id number] : 1980 Sex: M Admit Date: Loc / Svc: ED Discharge Date: DIAGNOSTIC IMAGING REPORT Report #: [id number] [facility] [place] Indication: ITS.REASON: fall, wrist pain, distal forearm pain PROCEDURE: RADIUS/ULNA RIGHT 2 VIEW: Encounter: Initial Comparison: None Findings: There is no acute fracture, dislocation or malalignment identified. Impression: No acute osseous abnormality. . Procedures Procedure Status Date Provider(s) X-RAY EXAM OF HAND Completed 08/28/15 EMERGENCY DEPT VISIT Completed 08/28/15 436135"PREFABRICATED, INCLUDES FITTING AND ADJUSTMENT" Completed 08/28/15 THER/PROPH/DIAG INJ SC/IM Completed 09/04/15 THER/PROPH/DIAG INJ SC/IM Completed 09/04/15 EMERGENCY DEPT VISIT Completed 09/04/15446321"INJECTION, KETOROLAC TROMETHAMINE, PER 15 MG" Completed 09/04/15619871"INJECTION, ORPHENADRINE CITRATE, UP TO 60 MG" Completed 09/04/15 X-RAY EXAM OF FOOT Completed 09/19/15 THER/PROPH/DIAG INJ SC/IM Completed 09/19/15 EMERGENCY DEPT VISIT Completed 09/19/15056757"INJECTION, KETOROLAC TROMETHAMINE, PER 15 MG" Completed 09/19/15 ROUTINE VENIPUNCTURE Completed 10/12/15 ROUTINE VENIPUNCTURE Completed 10/12/15 CT ABD & PELV W/CONTRAST Completed 10/12/15 COMPREHEN METABOLIC PANEL Completed 10/12/15 URINALYSIS AUTO W/O SCOPE Completed 10/12/15 ASSAY OF LACTIC ACID Completed 10/12/15 ASSAY OF LIPASE Completed 10/12/15 PROCALCITONIN (PCT) Completed 10/12/15 BL SMEAR W/DIFF WBC COUNT Completed 10/12/15 COMPLETE CBC AUTOMATED Completed 10/12/15 BLOOD CULTURE FOR BACTERIA Completed 10/12/15 BLOOD CULTURE FOR BACTERIA Completed 10/12/15 HYDRATE IV INFUSION ADD-ON Completed 10/12/15 THER/PROPH/DIAG IV INF INIT Completed 10/12/15 TX/PRO/DX INJ NEW DRUG ADDON Completed 10/12/15 TX/PRO/DX INJ NEW DRUG ADDON Completed 10/12/15 EMERGENCY DEPT VISIT Completed 10/12/15870002"INJECTION, CEFTRIAXONE SODIUM, PER 250 MG" Completed 10/12/15960807"INJECTION, ONDANSETRON HYDROCHLORIDE, PER 1 MG" Completed 10/12/15090100"INJECTION, FENTANYL CITRATE, 0.1 MG" Completed 10/12/15793737"INJECTION, FENTANYL CITRATE, 0.1 MG" Completed 10/12/15346497"INFUSION, NORMAL SALINE SOLUTION , 1000 CC" Completed 10/12/15032480"INFUSION, NORMAL SALINE SOLUTION , 1000 CC" Completed 10/12/15135944"INFUSION, NORMAL SALINE SOLUTION , 250 CC" Completed 10/12/15322980"INFUSION, NORMAL SALINE SOLUTION , 250 CC" Completed 10/12/15650488"LOW OSMOLAR CONTRAST MATERIAL, 300-399 MG/ML IODINE C Completed Encounters Encounter Location Arrival/Admit Date Discharge/Depart Date Attending Provider Departed Emergency Room [facility] 10/31/15 9:15am 10/31/15 11: 37am BROCK SIDDIQUI MD Departed Emergency Room [facility] 10/12/15 7:54pm 10/13/15 12: 28am BROCK SIDDIQUI MD Departed Emergency Room [facility] 09/19/15 3:02pm 09/19/15 5: 38pm PRATIBHA SIDDIQUI MD Departed Emergency Room [facility] 09/04/15 8:38pm 09/04/15 9: 29pm NUZHAT HAYES MD Departed Emergency Room [facility] 08/28/15 2:22am 08/28/15 3: 20am CARLY MARTINEZ MD Recent Diagnosis
--- OUTSIDE RECORDS SUMMARY | 2016-07-31 16:03 | XMS REPORT ---
Author Author Milla Rogers [facility] [employer] Address Unknown Phone Unavailable Care Team Providers Care Nuclear Radiologist Name Role Phone Milla Rogers CP Unavailable [...]
--- OUTSIDE RECORDS SUMMARY | 2016-07-31 16:03 | XMS REPORT ---
Author Author Elma Chavez Organization [employer] Address Unknown Phone Unavailable Care Team Providers Care Armhole Baster Hand Name Role Phone Elma Chavez CP Unavailable Allergies No Known Allergies Problems Problem Type Condition ICD-9 Code Onset Dates Condition Status Problem Posttraumatic stress disorder 309.81 Active Problem Anxiety state, unspecified 300.00 Active Problem Bipolar disorder, unspecified 296.80 Active Medications No Known Medications Results No Known Results Summary Purpose [employer] Submission
--- OUTSIDE RECORDS SUMMARY | 2016-07-31 16:03 | XMS REPORT ---
Author Author Milla Rogers Organization [employer] Address Unknown Phone Unavailable Care Team Providers Care Benefits Representative Name Role Phone Milla Rogers CP Unavailable Allergies, Adverse Reactions, Alerts Substance Reaction Event Type Morphine Sulfate nausea and vomiting Drug Allergy Haldol EPS, tongue swelling Drug Allergy Problems Problem Type Condition Code Onset Dates Condition Status Problem Tobacco use disorder 305.1 Active Problem Bipolar disorder, unspecified F31.9 Active Problem Post-traumatic stress disorder, unspecified F43.10 Active Assessment Post-traumatic stress disorder, unspecified F43.10 Active Assessment Anxiety disorder, unspecified F41.9 Active Problem Anxiety disorder, unspecified F41.9 Active Assessment Bipolar disorder, unspecified F31.9 Active Medications Medication Code System Code Instructions Start Date End Date Status Dosage Trihexyphenidyl HCl [facility] [address]-28 2 MG Orally every evening with Seroquel XR Jan 05, 2015 2 tablets Seroquel XR [facility] [address]-89 300 MG Orally Once a day Jan 05, 2015 2 tablets in the evening Procedures Procedure Coding System Code Date OFFICE VISIT, EST-MOD. COMPLEXITY (25 MIN) CPT-4 08584 Feb 02, 2015 Vital Signs Date/Time: Feb 02, 2015 Height 71.0 in Weight 175.4 lbs Temperature 99.0 F Blood Pressure Diastolic 78 mm Hg Blood Pressure Systolic 116 mm Hg Cardiac Monitoring Heart Rate 82 /min BMI 24.46 Index Respiratory Rate 18 /min Results No Known Results Summary Purpose [employer] Submission
--- OUTSIDE RECORDS SUMMARY | 2016-07-31 16:04 | XMS REPORT | Continuity of Care Document ---
Author Author [facility] Organization [facility] Address Unknown Phone Unavailable Support Name Relationship Address Phone NIKOLAS LUTZ DO Caregiver [address] [place] [address] Unavailable NUZHAT HAYES MD Caregiver [address] [place] [address] [place] [address] Unavailable CRISTIAN PULIDO Next Of Kin [address] [place] [address] Insurance Providers Guarantor Charissa Vu Address [address] [place] [address] Email [email or web address] Payer [facility] Community Plan Policy Number [id number] Subscriber's Name Charissa Vu Relationship 18 Self Effective Date 15 Expiration Date 15 Advance Directives Directive Response Recorded Date/Time Advanced Directives Type None 10/11/13 11:50am Ordered Resuscitation Status Full Code 10/11/13 1:23pm Chief Complaint and Reason for Visit Chief Complaint Abdominal Pain Reason for Visit [id number] WITH VOMITING Problems Active Problems Medical Problem Onset Date [...] Route Directions Days Qty Instructions Start Date Hyoscyamine Sulfate (Levsin) 0.125 Mg Tablet 1 Tab Oral Every 4 Hours as needed for Pain &/Or Spasm 10 Tablet 11/18/15 No Routine Meds 10/12/15 Ondansetron (Zofran Odt) 4 Mg Tab.rapdis 4 Mg Oral Every 6 Hours as needed for Nausea &/Or Vomiting 12 Tablet 11/18/15 Past Home Medications Medication Directions Ordered Status [...] QUARTER OZ EVERY 2 WEEKS, MARIJUANA OCC 11/18/2015 10: 58am Not Applicable Not Applicable Hx Alcohol Use Y TWICE PER WK 11/18/2015 10:58am Not Applicable Not Applicable Has the pt used tobacco in the last 12 months Yes 04/05/2015 4:34pm Not Applicable Not Applicable Tobacco Usage smoke 07/22/2013 11:17am Not Applicable Not Applicable Query Response Start Date Stop Date Smoking Status Former smoker Hospital Discharge Instructions No hospital discharge instructions. Plan of Care Discharge Date 11/18/15 2:50pm Disposition 01 DISCHARGED HOME, SELF-CARE Condition at Discharge Stable Instructions/Education Provided Food Poisoning Prescriptions See Medication Section Referrals NIKOLAS LUTZ DO Address: [address] [place] [phone] Note: Follow-up if not improving Care Plan and Goals Physician Care Plan Problem: Food Poisoning Goal: Follow up with primary care provider Instructions: Take medications and follow care plan as discussed/written Functional Status No functional status results. Allergies, Adverse Reactions, Alerts Allergen Type Severity Reaction Status Last Updated Haloperidol Allergy Unknown TREMORS Active 11/18/15 Morphine Allergy Unknown Active 11/18/15 Immunizations Query Response on File Recorded Date/Time Hx Influenza Vaccination No 04/05/15 4:34pm Hx Pneumococcal Vaccination No 04/05/15 4:34pm Hx Tetanus, Diptheria, Pertussis Y 200712/26/14 11:16am Hx Influenza Vaccination No 04/05/15 4:34pm Hx Tetanus, Diptheria, Pertussis Y 2008 12/26/14 11:16am DTaP Vaccine History 201311/18/15 10:58am Influenza Vaccine Hx NOT REC'D 11/18/15 10:58am Tdap Vaccine Hx 201108/28/15 2:27am Vital Signs Acute Vital Signs Vital Response Date/Time Temperature (Fahrenheit) 97.3 deg F (96.8 - 99.1) 11/18/2015 2:48pm Temperature (Calculated Celsius) 36.73955 degrees C (36.0 - 37.3) 11/18/2015 2:48pm Pulse Rate (adult) 71 bpm (60 - 100) 11/18/2015 2:48pm Respiratory Rate 15 breaths/min (10 - 20) 11/18/2015 2:48pm O2 Sat by Pulse Oximetry 100 % (90 - 100) 11/18/2015 2:48pm Blood Pressure 137/71 mm Hg 11/18/2015 2:48pm Blood Pressure 137/71 mm Hg 11/18/2015 2:48pm Height (Feet) 6 feet 11/18/2015 10:42am Height (Inches) 1.00 inches 11/18/2015 10:42am Weight (Kilograms) 70.100 kg 11/18/2015 10:42am Body Mass Index (BMI) 20.0 11/18/2015 10:42am Results Laboratory Results Test Name Result Units Flags Reference Collection Date/Time Result Date/ Time Comments Neutrophils % (Manual) 81.0 % H 33-66 [...] Comment NORMAL 10/12/2015 9:03pm 10/12/2015 9: 35pm Plasma Lactate 0.9 MMOL/L 0.6-2.2 10/12/2015 9:02pm 10/12/2015 9:43pm Procalcitonin < 0.05 NG/ML 10/12/2015 9:03pm 10/12/2015 9:42pm PCT < /=0.5 ng/mL - sepsis not likely; PCT >0.5 and </=2 ng/mL - sepsis possible; PCT >2 ng/mL - sepsis likely; PCT >/=10 ng/mL - systemic inflammatory response - sepsis or septic shock highly indicated. D-Dimer < 150 NG/ML 0-230 11/02/2015 12:12pm 11/02/2015 12:23pm <230 NG/ML D-DU=PRESUMPTIVE NEGATIVE FOR PE OR DVT >230 NG/ML D-DU=ADDITIONAL EVAL FOR PE OR DVT RECOMMENDED White Blood Count 10.9 T/MM3 4.5-11.0 11/18/2015 10:50am 11/18/2015 11: 39am Red Blood Count 4.64 M/MM3 4.50-5.90 11/18/2015 10:50am 11/18/2015 11: 39am Hemoglobin 14.4 GM/DL 13.5-17.5 11/18/2015 10:50am 11/18/2015 11:39am Hematocrit 42.1 % 41-53 11/18/2015 10:50am 11/18/2015 11:39am Mean Corpuscular Volume 90.7 UM3 80-100 11/18/2015 10:50am 11/18/2015 11:39am Mean Corpuscular Hemoglobin 31.0 UUG 26-34 11/18/2015 10:50am 2015 11:39am Mean Corpuscular Hemoglobin Concent 34.2 GM/DL 31-37 11/18/2015 10:50am 11/18/2015 11:39am RDW Standard Deviation 47.3 FL 36.9-50.2 11/18/2015 10:50am 11/18/2015 11:39am Platelet Count 320 T/MM3 130-400 11/18/2015 10:50am 11/18/2015 11:39am Mean Platelet Volume 9.9 UM3 9.4-12.4 11/18/2015 10:50am 11/18/2015 11: 39am Neutrophils (%) (Auto) 81.4 % H 33-66 11/18/2015 10:50am 11/18/2015 11: 39am Lymphocytes (%) (Auto) 13.2 % L 23-45 11/18/2015 10:50am 11/18/2015 11: 39am Monocytes (%) (Auto) 4.4 % 0-9.0 11/18/2015 10:50am 11/18/2015 11:39am Eosinophils (%) (Auto) 0.4 % 0-4 11/18/2015 10:50am 11/18/2015 11:39am Basophils (%) (Auto) 0.4 % 0-2 11/18/2015 10:50am 11/18/2015 11:39am Immature Granulocyte % (Auto) 0.2 % 0.0-0.5 11/18/2015 10:50am 2015 11:39am Absolute Neutrophils (auto) 8.9 T/MM3 H 1.8-7.7 11/18/2015 10:50am 11/17 11:39am Absolute Lymphocytes (auto) 1.4 T/MM3 1-4.8 11/18/2015 10:50am 2015 11:39am Absolute Monocytes (auto) 0.5 T/MM3 0-0.8 11/18/2015 10:50am 2015 11:39am Absolute Eosinophils (auto) 0.0 T/MM3 0-0.5 11/18/2015 10:50am 2015 11:39am Absolute Basophils (auto) 0.0 T/MM3 0-0.2 11/18/2015 10:50am 2015 11:39am Absolute Immature Granulocyte (auto 0.02 T/MM3 0.00-0.03 11/18/2015 10: 50am 11/18/2015 11:39am Icterus Index < 2 0-7 11/18/2015 10:50am 11/18/2015 11:45am Chemistry Specimen Hemolysis < 15 0-25 11/18/2015 10:50am 11/18/2015 11:45am 0-25: Specimen Exhibited No Hemolysis. Turbidity < 20 0-20 11/18/2015 10:50am 11/18/2015 11:45am Sodium Level 147 MEQ/L H 134-144 11/18/2015 10:50am 11/18/2015 11:45am Potassium Level 3.4 MEQ/L L 3.6-5 11/18/2015 10:50am 11/18/2015 11:45am Chloride Level 102 MEQ/L 98-107 11/18/2015 10:50am 11/18/2015 11:45am Carbon Dioxide Level 23 MEQ/L 22-30 11/18/2015 10:50am 11/18/2015 11: 45am Anion Gap 22 MEQ/L H 5-15 11/18/2015 10:50am 11/18/2015 11:45am Blood Urea Nitrogen 15.0 MG/DL 9-20 11/18/2015 10:50am 11/18/2015 11: 45am Creatinine 0.7 MG/DL L 0.8-1.5 11/18/2015 10:50am 11/18/2015 11:45am BUN/Creatinine Ratio 21 RATIO 6-26 11/18/2015 10:50am 11/18/2015 11: 45am Glomerular Filtration Rate Calc 128 11/18/2015 10:50am 11/18/2015 11:45am Glucose Level 111 MG/DL H 75-110 11/18/2015 10:50am 11/18/2015 11:45am Calculated Osmolality 284 MOSM/KG H 261-280 11/18/2015 10:50am 2015 11:45am Calcium Level 9.8 MG/DL 8.4-10.2 11/18/2015 10:50am 11/18/2015 11:45am Total Bilirubin 0.50 MG/DL 0.20-1.30 11/18/2015 10:50am 11/18/2015 11: 45am Alkaline Phosphatase 105 U/L 38-126 11/18/2015 10:50am 11/18/2015 11: 45am Total Protein 8.0 G/DL 6.3-8.2 11/18/2015 10:50am 11/18/2015 11:45am Albumin 5.3 G/DL H 3.5-5.0 11/18/2015 10:50am 11/18/2015 11:45am Globulin 2.7 G/DL 2.4-3.6 11/18/2015 10:50am 11/18/2015 11:45am Albumin/Globulin Ratio 2.0 RATIO 1.1-2.2 11/18/2015 10:50am 11/18/2015 11:45am Aspartate Amino Transf (AST/SGOT) 28 U/L 17-59 11/18/2015 10:50am 11/17 11:45am Alanine Aminotransferase (ALT/SGPT) 17 U/L L 21-72 11/18/2015 10:50am 11:45am Lipase 37 U/L 23-300 11/18/2015 10:50am 11/18/2015 11:45am Urine Collection Type VOIDED-NOT CC-MIDSTR 11/18/2015 11:3111/17 12:25pm Urine Color YELLOW YELLOW 11/18/2015 11:3111/18/2015 12:25pm Urine Turbidity CLEAR CLEAR 11/18/2015 11:3111/18/2015 12:25pm Urine Specific [place] 1.020 1.015-1.025 11/18/2015 11:312015 12:25pm Urine pH 8.5 H 5.0-8.0 11/18/2015 11:3111/18/2015 12:25pm Urine Leukocyte Esterase NEGATIVE NEGATIVE 11/18/2015 11:312015 12:25pm Urine Nitrite NEGATIVE NEGATIVE 11/18/2015 11:3111/18/2015 12: 25pm Urine Protein TRACE A NEGATIVE 11/18/2015 11:3111/18/2015 12:25pm Urine Glucose (UA) NEGATIVE NEGATIVE 11/18/2015 11:31am 11/18/2015 12 :25pm Urine Ketones 1+ A NEGATIVE 11/18/2015 11:31am 11/18/2015 12:25pm Urine Urobilinogen 0.2 EU/DL NORMAL 11/18/2015 11:31am 11/18/2015 12: 25pm Urine Bilirubin NEGATIVE NEGATIVE 11/18/2015 11:31am 11/18/2015 12: 25pm Urine Blood NEGATIVE NEGATIVE 11/18/2015 11:31am 11/18/2015 12:25pm Urinalysis Comment MICROSCOPIC NOT IND. 11/18/2015 11:31am 2015 12:25pm Microbiology Results Procedure Source Organism/Result Collection Date/Time Result Date/Time Result Status Blood Culture Peripheral/Iv Start NO GROWTH AFTER 5 DAYS 10/12/2015 9:06pm 10/17/2015 9:09pm Final Procedures Procedure Status Date Provider(s) X-RAY EXAM OF HAND Completed 08/28/15 EMERGENCY DEPT VISIT Completed 08/28/15 083128"PREFABRICATED, INCLUDES FITTING AND ADJUSTMENT" Completed 08/28/15 THER/PROPH/DIAG INJ SC/IM Completed 09/04/15 THER/PROPH/DIAG INJ SC/IM Completed 09/04/15 EMERGENCY DEPT VISIT Completed 09/04/15 384487"INJECTION, KETOROLAC TROMETHAMINE, PER 15 MG" Completed 09/04/15 793602"INJECTION, ORPHENADRINE CITRATE, UP TO 60 MG" Completed 09/04/15 X-RAY EXAM OF FOOT Completed 09/19/15 THER/PROPH/DIAG INJ SC/IM Completed 09/19/15 EMERGENCY DEPT VISIT Completed 09/19/15 [id number]"INJECTION, KETOROLAC TROMETHAMINE, PER 15 MG" Completed 09/19/15 [...] ADDON Completed 10/12/15 EMERGENCY DEPT VISIT Completed 10/12/15 313531"INJECTION, CEFTRIAXONE SODIUM, PER 250 MG" Completed 10/12/15772557"INJECTION, ONDANSETRON HYDROCHLORIDE, PER 1 MG" Completed 10/12/15618780"INJECTION, FENTANYL CITRATE, 0.1 MG" Completed 10/12/15427948"INJECTION, FENTANYL CITRATE, 0.1 MG" Completed 10/12/15316794"INFUSION, NORMAL SALINE SOLUTION , 1000 CC" Completed 10/12/15 315343"INFUSION, NORMAL SALINE SOLUTION , 1000 CC" Completed 10/12/15736255"INFUSION, NORMAL SALINE SOLUTION , 250 CC" Completed 10/12/15562534"INFUSION, NORMAL SALINE SOLUTION , 250 CC" Completed 10/12/15 825319"LOW OSMOLAR CONTRAST MATERIAL, 300-399 MG/ML IODINE C Completed X-RAY EXAM OF FOREARM Completed 10/31/15 X-RAY EXAM OF WRIST Completed 10/31/15 X-RAY EXAM OF KNEE 3 Completed 10/31/15 EMERGENCY DEPT VISIT Completed 10/31/15 532416"INJECTION, FENTANYL CITRATE, 0.1 MG" Completed 10/31/15 525301"INJECTION, FENTANYL CITRATE, 0.1 MG" Completed 10/31/15 ROUTINE VENIPUNCTURE Completed 11/02/15 FIBRIN DEGRADATION QUANT Completed 11/02/15 Encounters Encounter Location Arrival/Admit Date Discharge/Depart Date Attending Provider Departed Emergency Room [facility] 11/18/15 10:41am 11/18/15 2: 50pm NUZHAT HAYES MD Registered Clinic [facility] 11/02/15 12:06pm NIKOLAS LUTZ DO Departed Emergency Room [facility] 10/31/15 9:15am 10/31/15 11: 37am BROCK SIDDIQUI MD Departed Emergency Room [facility] 10/12/15 7:54pm 10/13/15 12: 28am BROCK SIDDIQUI MD Departed Emergency Room [facility] 09/19/15 3:02pm 09/19/15 5: 38pm PRATIBHA SIDDIQUI MD Departed Emergency Room [facility] 09/04/15 8:38pm 09/04/15 9: 29pm NUZHAT HAYES MD Departed Emergency Room [facility] 08/28/15 2:22am 08/28/15 3: 20am CARLY MARTINEZ MD Recent Diagnosis
--- OUTSIDE RECORDS SUMMARY | 2016-07-31 16:04 | XMS REPORT | Continuity of Care Document ---
Author Author [facility] Organization [facility] Address Unknown Phone Unavailable Support Name Relationship Address Phone BROCK SIDDIQUI MD Caregiver [address] [place] [address] [place] [address] Unavailable CRISTIAN PULIDO Next Of Kin [address] [place], [place] [id number] Insurance Providers Guarantor Charissa Vu Address [address] [place] [address] Email [email or web address] [facility] Community Plan Policy Number [id number] Subscriber's Name Charissa Vu Relationship 18 Self Effective Date 15 Expiration Date 15 Advance Directives Directive Response Recorded Date/Time Advanced Directives Type None 10/11/13 11:50am Ordered Resuscitation Status Full Code 10/11/13 1:23pm Chief Complaint and Reason for Visit Chief Complaint Abdominal Pain Reason for Visit Mild dehydration Constipation Problems Active Problems Medical Problem Onset Date [...] Vomiting Unknown Acute Penile discharge Unknown Acute Trapezius muscle spasm Unknown Acute Viral syndrome Unknown Acute Viral syndrome Unknown Acute Past Problems Medical Problem Onset Date Constipation Unknown Mild dehydration Unknown Toe contusion Unknown Medications Current Home Medications Medication Dose Units Route Directions Days Qty Instructions Start Date Hydrocodone/Apap 7.5/325 Mg ([place] 7.5-325 Tablet) 1 Each Tablet 1 Tab Oral Every 4-6 Hours Prn as needed for Pain 10/12/15 No Routine Meds 10/12/15 Past Home Medications Medication Directions Ordered Status Azithromycin 500 Mg Tablet, 1 Tab Oral As Directed 04/05/15 Discontinued Butalb/Acetaminophen/Caffeine (Fioricet Tablet) 1 Tab Tablet, 1 Tab Oral As Needed 10/13/10 Discontinued Divalproex Sodium (Depakote) 250 Mg Tablet., 1 Tab Oral Daily 03/20/10 Discontinued Metaxalone [...] Substance Use Y QUARTER OZ EVERY 2 WEEKS 10/12/2015 9:22pm Not Applicable Not Applicable Hx Alcohol Use Y OCCASSIONAL 10/12/2015 9:22pm Not Applicable Not Applicable Has the pt used tobacco in the last 12 months Yes 04/05/2015 4:34pm Not Applicable Not Applicable Tobacco Usage smoke 07/22/2013 11:17am Not Applicable Not Applicable Query Response Start Date Stop Date Smoking Status Former smoker Hospital Discharge Instructions No hospital discharge instructions. Plan of Care Discharge Date 10/13/15 12:28am Disposition 01 DISCHARGED HOME, SELF-CARE Condition at Discharge Improved Instructions/Education Provided Constipation (Alternative Therapy) Constipation Prescriptions See Medication Section Referrals Dr. Adams Order Date: 3 Days Note: Additional Instructions/Education Rest. Drink plenty of fluids. Follow up with your physician as instructed. Finishe the "Golytely" bowel prep to help with your constipation. Consider either glycerin suppositories or dulcolax suppositories to help with the constipation. Care Plan and Goals Physician Care Plan Problem: constipation. dehydration. Goal: Follow up with primary care provider Instructions: Take medications and follow care plan as discussed/written Functional Status No functional status results. Allergies, Adverse Reactions, Alerts Allergen Type Severity Reaction Status Last Updated Haloperidol Allergy Unknown TREMORS Active 10/12/15 Morphine Allergy Unknown Active 10/12/15 Immunizations Query Response on File Recorded Date/Time Hx Influenza Vaccination No 04/05/15 4:34pm Hx Pneumococcal Vaccination No 04/05/15 4:34pm Hx Tetanus, Diptheria, Pertussis Y 200712/26/14 11:16am Hx Influenza Vaccination No 04/05/15 4:34pm Hx Tetanus, Diptheria, Pertussis Y 200712/26/14 11:16am DTaP Vaccine History 201310/12/15 9:22pm Influenza Vaccine Hx NOT REC'D 10/12/15 9:22pm Tdap Vaccine Hx 201108/28/15 2:27am Vital Signs Acute Vital Signs Vital Response Date/Time Temperature (Fahrenheit) 98.2 deg F (96.8 - 99.1) 10/13/2015 12:24am Temperature (Calculated Celsius) 36.49944 degrees C (36.0 - 37.3) 10/13/2015 12:24am Pulse Rate (adult) 83 bpm (60 - 100) 10/13/2015 12:24am Respiratory Rate 19 breaths/min (10 - 20) 10/13/2015 12:24am O2 Sat by Pulse Oximetry 97 % (90 - 100) 10/13/2015 12:24am Blood Pressure 128/79 mm Hg 10/13/2015 12:24am Height (Feet) 6 feet 10/12/2015 7:58pm Height (Inches) 1.00 inches 10/12/2015 7:58pm Weight (Kilograms) 73.700 kg 10/12/2015 7:58pm Body Mass Index (BMI) 21.0 10/12/2015 7:58pm Results Laboratory Results Test Name Result Units [...] CLEAR 10/12/2015 10:03pm 10/12/2015 10:12pm Urine Specific [place] >=1.030 H 1.015-1.025 10/12/2015 10:03pm 2015 10:12pm [...] Date/Time Result Status Blood Culture Peripheral/Iv Start CULTURE INITIATED - RESULTS PENDING 10/11 9:06pm 10/12/2015 9:10pm Preliminary Procedures Procedure Status Date Provider(s) X-RAY EXAM OF HAND Completed 08/28/15 EMERGENCY DEPT VISIT Completed 08/28/15 [id number]"PREFABRICATED, INCLUDES FITTING AND ADJUSTMENT" Completed 08/28/15 THER/PROPH/DIAG INJ SC/IM Completed 09/04/15 THER/PROPH/DIAG INJ SC/IM Completed 09/04/15 EMERGENCY DEPT VISIT Completed 09/04/15 340703"INJECTION, KETOROLAC TROMETHAMINE, PER 15 MG" Completed 09/04/15 831447"INJECTION, ORPHENADRINE CITRATE, UP TO 60 MG" Completed 09/04/15 X-RAY EXAM OF FOOT Completed 09/19/15 THER/PROPH/DIAG INJ SC/IM Completed 09/19/15 EMERGENCY DEPT VISIT Completed 09/19/15 626104"INJECTION, KETOROLAC TROMETHAMINE, PER 15 MG" Completed 09/19/15 Encounters Encounter Location Arrival/Admit Date Discharge/Depart Date Attending Provider Departed Emergency Room [facility] 10/12/15 7:54pm 10/13/15 12: 28am BROCK SIDDIQUI MD Departed Emergency Room [facility] 09/19/15 3:02pm 09/19/15 5: 38pm PRATIBHA SIDDIQUI MD Departed Emergency Room [facility] 09/04/15 8:38pm 09/04/15 9: 29pm NUZHAT HAYES MD Departed Emergency Room [facility] 08/28/15 2:22am 08/28/15 3: 20am CARLY MARTINEZ MD Recent Diagnosis
--- NOTE | 2016-07-31 16:30 | NUR ---
XR Patient out to XRay
--- NOTE | 2016-07-31 16:32 | ERPDOC ---
Departure Disposition Decision Date: Jul 31, 2016 Disposition Decision Time: 17:10 (SAMREEN VENTURA APRN) Disposition: 01 DISCHARGED HOME, SELF-CARE Impression Impression (SAMREEN VENTURA APRN) Impression: Primary Impression: Sciatic notch pain Severity: Mild (SAMREEN VENTURA APRN) Condition: Stable Seen By: Mid-level only (SAMREEN VENTURA APRN) Referrals: NIKOLAS LUTZ DO (Family) Patient Instructions: Sciatica (ED) Problems/Meds/Labs Reviewed?: Yes Medications reviewed and manag: Yes (SAMEREN VENTURA APRN) Additional Instructions: 1. Take Ibuprofen up to 800 mg every 8 hours with food as needed for pain 2. Ice area of pain 15-20 minutes every 2 hours while awake 3. Follow up with your surgeon in [place] Follow up care ordered?: Yes Mental Status: Alert, Oriented (SAMREEN VENTURA APRN) HPI - Lower Extremity General Chief Complaint: Lower Extremity Pain Stated Complaint: HIP PAIN Time Seen by Provider: 16:27 Source: patient Exam Limitations: no limitations (SAMREEN VENTURA APRN) Time Seen by Provider: 16:27 (ETHEL JARRELL DO) HPI - Lower Extremity Initial Comments Gil is a 36 year old male who reports a prior history of arthroscopic left hip surgery by an unknown doctor in [place] to correct some popping and grinding he was having. Patient reports walking two days ago and having a popping sensation with sudden pain to the left hip. Reports taking "1700 mg" of ibuprofen this morning. States in the past was told he could take up to 3200 mg of ibuprofen in a day so thought 1700 mg would be a good start. States that amount didn't do anything to touch the pain. Ambulatory to room 2 in ER with some gait alteration but is bearing weight. Occurred At: home Onset/Timing: Getting worse Duration: other (2 days) Pain/Severity Scale: Now: 9/10 Pain/Injury Location: left hip Method of Injury: unknown Modifying Factors/Context: IMPROVES WITH: immobilization, WORSE WITH: movement Hx of Similar Symptoms: Yes (SAMREEN VENTURA APRN) Allergies: Coded Allergies: haloperidol (Verified Allergy, Unknown, TREMORS, 07/31/16) morphine (Verified Allergy, Unknown, 07/31/16) Past History Past Medical History ENMT: allergies GI: IBS Neurological: migraines Musculoskeletal: osteoarthritis, other Psychological: bipolar, depression, other, schizophrenia (SAMREEN VENTURA APRN) Surgical History Joint: elbow, hip, shoulder (SAMREEN VENTURA APRN) Vaccines Hx Influenza Vaccination: No Hx Pneumococcal Vaccination: No Hx Tetanus, Diptheria, Pertuss: Yes (2007) (SAMREEN VENTURA APRN) Social History Smoking Status: Current every day smoker (SAMREEN VENTURA APRN) Review of Systems Constitutional Constitutional: DENIES: fever (SAMREEN VENTURA APRN) Cardiovascular Cardiac: DENIES: chest pain (SAMREEN VENTURA APRN) Musculoskeletal General: pain (left hip) (SAMREEN VENTURA APRN) Psychiatric Psychiatric: anxiety, depression (SAMREEN VENTURA APRN) All other Systems All Other Systems: Reviewed and Negative (SAMREEN VENTURA APRN) Physical Exam General General Nourishment: well nourished, well developed, appears stated age, no acute distress (SAMREEN VENTURA APRN) Vitals and Pain First Documented Vital Signs Date Time Temp Pulse Resp B/P Pulse Ox O2 Delivery O2 Flow Rate FiO2 07/31/16 16:02 97.9 87 14 136/91 98 Room Air (ETHEL JARRELL DO) Vitals and Pain Weight: Kilograms: 67.900 Height (feet): 6 Height (inches): 0 Triage Pain Scale: (SAMREEN VENTURA APRN) ENMT (brief) ENMT Brief: FOUND: mucosa moist (SAMREEN VENTURA APRN) Musculoskeletal (brief) Musculoskeletal Brief: FOUND: tenderness (left hip tenderness - sciatic notch tenderness) (SAMREEN VENTURA APRN) Integumentary (brief) Integumentary Brief: FOUND: dry, pink, warm, NOT FOUND: rash (SAMREEN VENTURA APRN) Psychiatric (brief) Psychiatric Brief: FOUND: alert, attentive, normal affect, oriented (SAMREEN VENTURA APRN) Differential Diagnoses Considering: Fracture, Sprain, Strain (SAMREEN VENTURA APRN) Progress Results/Orders Orders Procedure Category Date Status Time Hip Left 2 View RAD 07/31/16 Resulted (ETHEL JARRELL DO) Xray Xray : Xray: Hip L Interpretation: Normal, Reviewed Written Report (SAMREEN VENTURA APRN) SAMREEN VENTURA APRN Jul 31, 2016 16:32 ETHEL JARRELL DO Jul 31, 2016 17:32
--- NOTE | 2016-07-31 16:36 | NUR ---
XR Patient returns from XRay
[2016-07-31] MEDS ORDERED: ARIP5TAB12 PO (16:38)
[2016-07-31] MEDS ORDERED: IBUP-1724 PO (16:40)
[2016-07-31] MEDS ORDERED: DIVA500T55 PO (16:40)
--- OUTSIDE RECORDS SUMMARY | 2016-07-31 16:40 | XMS REPORT | Continuity of Care Document ---
Author Author [facility] Organization [facility] Address Unknown Phone Unavailable Allergies Active Description Code Type Severity Reaction Onset Reported/Identified Relationship to Patient Clinical Status Yes morphine NKMA N/A Adverse Reaction N V hallucina 08/30/2013 Medications Problems Procedures Results Encounters ACCT No. Visit Date/Time Discharge Status Pt. Type Provider Facility Loc./Unit Complaint [id number] 04/11/2015 14:57:00 2014 23:59:00 DIS Outpatient Blaze Barrera [facility] New Surg EVAL. SURGICAL SITE L THIGH [id number] 04/03/2015 13:34:00 2014 23:59:00 DIS Outpatient Blaze Barrera [facility] New Surg HERNIA- ER LAST NIGHT. [id number] 05/16/2014 17:05:00 2014 23:59:00 DIS Outpatient Savannah Shah [facility] New IC CHEST CONGESTION,STUFFY NOSE BODY WEAKNESS [id number] 04/18/2015 11:10:00 ACT Outpatient Blaze Barrera [facility] New Surg Post Op
--- OUTSIDE RECORDS SUMMARY | 2016-07-31 16:40 | XMS REPORT | Continuity of Care Document ---
Author Author [facility] Organization [facility] Address Unknown Phone Unavailable Care Team Providers Care Financial Coach Name Role Phone Ricardo MERCER MD Primary Care Physician [phone] Insurance Providers Payer Name Policy Number Subscriber [...] F (96.8 - 99.1) Temperature (Calculated Celsius) 36.09928 degrees C (36.0 - 37.3) Pulse Rate [...] Has specimen been collected/obtained? Y Urine Specific [place] February 10, 2014 3:20pm >=1.030 H - [...] Encounters Encounter Location Date/Time Departed Emergency Room [facility] 02/10/14 3:06pm Recent Diagnosis
--- OUTSIDE RECORDS SUMMARY | 2016-07-31 16:41 | XMS REPORT | Continuity of Care Document ---
Author Author [facility] Organization [facility] Address Unknown Phone Unavailable Support Name Relationship Address Phone PRATIBHA SIDDIQUI MD Caregiver [address] [place] [address] [place] [address] Ricardo MERCER MD Caregiver [address] [place], [place] [phone] CRISTIAN PULIDO Next Of Kin [address] [place] [address] Insurance Providers Payer Name Policy Number Subscriber [...] F (96.8 - 99.1) Temperature (Calculated Celsius) 36.22798 degrees C (36.0 - 37.3) Pulse Rate [...] Has specimen been collected/obtained? Y Urine Specific [place] February 10, 2014 3:20pm >=1.030 H - [...] Encounters Encounter Location Date/Time Departed Emergency Room [facility] 03/24/14 2:51pm Departed Emergency Room [facility] 02/10/14 3:06pm Recent Diagnosis
--- NOTE | 2016-07-31 16:48 | DI ---
Indication: ITS.REASON: popping hip, prior surgery PROCEDURE: HIP LEFT 2 VIEW: Encounter: Initial Comparison: Left hip MRI dated July 04, 2015 Findings: There is no acute fracture, dislocation or malalignment identified. Hip joint space is maintained. Impression: No acute osseous abnormality. .
[2016-07-31 17:15] VITALS: BP 140/74; PULSE 89; RESP 16; TEMP 97.9; O2SAT 98
== END 2016-07-31 17:15 | disposition home or self-care (01) ==
LOC: ED 15:59
DX: M25.552 Pain in left hip (principal); M54.32 Sciatica, left side

== ENCOUNTER 2016-09-22 16:01 | Emergency (ER) | payer MEDICAID ==
[~2016-09-22] VITALS: Ht 185.4 cm; Wt 67.7 kg
[~2016-09-22 16:01] MED LIST changes: +ARIP5TAB12 PO; +DIVA500T55 PO; -HYOS0.122 PO; +IBUP-1724 PO; -NO ROUTINE MEDS; -ONDA4TAB7 PO
--- OUTSIDE RECORDS SUMMARY | 2016-09-22 16:06 | XMS REPORT | Continuity of Care Document ---
Author Author [facility] Organization [facility] Address Unknown Phone Unavailable Care Team Providers Care Coding Analyst Name Role Phone Ricardo MERCER MD Primary Care Physician [phone] Insurance Providers Payer Name Policy Number Subscriber [...] F (96.8 - 99.1) Temperature (Calculated Celsius) 36.57843 degrees C (36.0 - 37.3) Pulse Rate [...] Has specimen been collected/obtained? Y Urine Specific [place] February 10, 2014 3:20pm >=1.030 H - [...] Encounters Encounter Location Date/Time Departed Emergency Room [facility] 02/10/14 3:06pm Recent Diagnosis
[2016-09-22 16:07] VITALS: Ht 185.4 cm; Wt 67.7 kg
--- OUTSIDE RECORDS SUMMARY | 2016-09-22 16:07 | XMS REPORT | Continuity of Care Document ---
Author Author [facility] Organization [facility] Address Unknown Phone Unavailable Support Name Relationship Address Phone ETHEL JARRELL Adriana DO Caregiver [address] [place] [address] Unavailable EDGAR PULIDOINE Next Of Kin [address] [place], [place] [phone] Insurance Providers Guarantor Charissa Vu Address [address] [place] [address] C Email [email or web address] [facility] Community Plan Policy Number [id number] Subscriber's Name Charissa Vu Relationship 18 Self Effective Date 16 Expiration Date 16 Advance Directives Directive Response Recorded Date/Time Advanced Directives Type None 10/11/13 11:50am Ordered Resuscitation Status Full Code 10/11/13 1:23pm Chief Complaint and Reason for Visit Chief Complaint Lower Extremity Pain Reason for Visit Sciatic notch pain Problems Active Problems Medical Problem Onset Date [...] Onset Date Constipation Unknown Mild dehydration Unknown Sciatic notch pain Unknown Sprain of right wrist Unknown Strain of right knee Unknown Toe contusion Unknown Medications Current Home Medications Medication Dose Units Route Directions Days Qty Instructions Start Date Aripiprazole 5 Mg Tablet 10 Mg Oral Daily 07/31/16 Divalproex Sodium (Divalproex Sodium Er) 500 Mg Tab.er.24h 1,500 Mg Oral Bedtime 07/31/16 Ibuprofen 200 Mg Tablet 2 Tab Oral Every 4 Hours as needed for Pain 07/31/16 Past Home Medications Medication Directions Ordered Status Azithromycin 500 Mg Tablet, 1 Tab Oral As Directed 04/05/15 Discontinued Butalb/Acetaminophen/Caffeine (Fioricet Tablet) 1 Tab Tablet, 1 Tab Oral As Needed 10/13/10 Discontinued Divalproex Sodium (Depakote) 250 Mg Tablet.dr, 1 Tab Oral Daily 03/20/10 Discontinued Metaxalone (Skelaxin) 800 Mg Tablet, 1 Tab Oral Twice A Day 03/20/10 Discontinued No Routine Meds , 10/12/15 Discontinued Propoxyphene/Acetaminophen (Darvocet-N 100 Tablet) 1 Tab Tablet, 1 Tab Oral Twice A Day 03/20/10 Discontinued Seroquel , Oral 08/31/11 Discontinued Social History Social History Problem Response Recorded Date/Time Onset Date Status Chewing Tobacco Status No 10/12/2013 6:10am Not Applicable Not Applicable Hx Substance Use N Hx of 07/31/2016 4:10pm Not Applicable Not Applicable Hx Alcohol Use Y TWICE PER WK 07/31/2016 4:10pm Not Applicable Not Applicable Has the pt used tobacco in the last 12 months Yes 04/05/2015 4:34pm Not Applicable Not Applicable Tobacco Usage smoke 07/22/2013 11:17am Not Applicable Not Applicable Query Response Start Date Stop Date Smoking Status Former smoker Hospital Discharge Instructions No hospital discharge instructions. Plan of Care Discharge Date 07/31/16 5:15pm Disposition 01 DISCHARGED HOME, SELF-CARE Condition at Discharge Stable Instructions/Education Provided Sciatica (ED) Prescriptions See Medication Section Referrals NIKOLAS LUTZ DO Address: [address] [place] [address] [phone] Additional Instructions/Education 1. Take Ibuprofen up to 800 mg every 8 hours with food as needed for pain 2. Ice area of pain 15-20 minutes every 2 hours while awake 3. Follow up with your surgeon in [place] Care Plan and Goals Physician Care Plan Problem: Sciatica Goal: Follow up with primary care provider Instructions: Take medications and follow care plan as discussed/written Functional Status No functional status results. Allergies, Adverse Reactions, Alerts Allergen Type Severity Reaction Status Last Updated Haloperidol Allergy Unknown TREMORS Active 07/31/16 Morphine Allergy Unknown Active 07/31/16 Immunizations Query Response on File Recorded Date/Time Hx Influenza Vaccination No 04/05/15 4:34pm Hx Pneumococcal Vaccination No 04/05/15 4:34pm Hx Tetanus, Diptheria, Pertussis Y 200712/26/14 11:16am Hx Influenza Vaccination No 04/05/15 4:34pm Hx Tetanus, Diptheria, Pertussis Y 200712/26/14 11:16am DTaP Vaccine History 201307/31/16 4:10pm Influenza Vaccine Hx NOT REC'D 07/31/16 4:23pm Tdap Vaccine Hx 201107/31/16 4:23pm Vital Signs Acute Vital Signs Vital Response Date/Time Temperature (Fahrenheit) 97.9 deg F (96.8 - 99.1) 07/31/2016 5:15pm Temperature (Calculated Celsius) 36.42658 degrees C (36.0 - 37.3) 07/31/2016 5:15pm Pulse Rate (adult) 89 bpm (60 - 100) 07/31/2016 5:15pm Respiratory Rate 16 breaths/min (10 - 20) 07/31/2016 5:15pm O2 Sat by Pulse Oximetry 98 % (90 - 100) 07/31/2016 5:15pm Blood Pressure 140/74 mm Hg 07/31/2016 5:15pm Height (Feet) 6 feet 07/31/2016 4:02pm Height (Inches) 0 inches 07/31/2016 4:02pm Weight (Kilograms) 67.900 kg 07/31/2016 4:02pm Body Mass Index (BMI) 20.0 07/31/2016 4:02pm Results Name: CHARISSA VU Unit #: [id number] : 1980 Sex: M Admit Date: Loc / Svc: ED Discharge Date: DIAGNOSTIC IMAGING REPORT Report #: [id number] [facility] FRANCESCA [place] Indication: ITS.REASON: popping hip, prior surgery PROCEDURE: HIP LEFT 2 VIEW: Encounter: Initial Comparison: Left hip MRI dated July 04, 2015 Findings: There is no acute fracture, dislocation or malalignment identified. Hip joint space is maintained. Impression: No acute osseous abnormality. . Procedures No known history of procedures. Encounters Encounter Location Arrival/Admit Date Discharge/Depart Date Attending Provider Departed Emergency Room [facility] 07/31/16 3:59pm 07/31/16 5: 15pm ETHEL JARRELL DO Recent Diagnosis
--- OUTSIDE RECORDS SUMMARY | 2016-09-22 16:07 | XMS REPORT | Continuity of Care Document ---
Author Author [facility] Organization [facility] Address Unknown Phone Unavailable Allergies Active Description Code Type Severity Reaction Onset Reported/Identified Relationship to Patient Clinical Status Yes morphine NKMA N/A Adverse Reaction N V hallucina 08/30/2013 Medications Problems Procedures Results Encounters ACCT No. Visit Date/Time Discharge Status Pt. Type Provider Facility Loc./Unit Complaint [id number] 04/11/2015 14:57:00 2014 23:59:00 DIS Outpatient Blaze Barrera [facility] New Surg EVAL. SURGICAL SITE L THIGH [id number] 04/03/2015 13:34:00 2014 23:59:00 DIS Outpatient Blaze Barrera [facility] New Surg HERNIA- ER LAST NIGHT. [id number] 05/16/2014 17:05:00 2014 23:59:00 DIS Outpatient Savannah Shah [facility] New IC CHEST CONGESTION,STUFFY NOSE BODY WEAKNESS [id number] 04/18/2015 11:10:00 ACT Outpatient Blaze Barrera [facility] New Surg Post Op
--- OUTSIDE RECORDS SUMMARY | 2016-09-22 16:07 | XMS REPORT | Continuity of Care Document ---
Author Author [facility] Organization [facility] Address Unknown Phone Unavailable Support Name Relationship Address Phone PRATIBHA SIDDIQUI MD Caregiver [address] [place] [address] [place] [address] Ricardo MERCER MD Caregiver [address] [place], [place] [phone] CRISTIAN PULIDO Next Of Kin [address] [place] [address] Insurance Providers Payer Name Policy Number Subscriber [...] F (96.8 - 99.1) Temperature (Calculated Celsius) 36.84625 degrees C (36.0 - 37.3) Pulse Rate [...] Has specimen been collected/obtained? Y Urine Specific [place] February 10, 2014 3:20pm >=1.030 H - [...] Encounters Encounter Location Date/Time Departed Emergency Room [facility] 03/24/14 2:51pm Departed Emergency Room [facility] 02/10/14 3:06pm Recent Diagnosis
[2016-09-22] MEDS ORDERED: FLUO10CA21 PO (16:22)
--- OUTSIDE RECORDS SUMMARY | 2016-09-22 16:30 | XMS REPORT | Continuity of Care Document ---
Author Author [facility] Organization [facility] Address Unknown Phone Unavailable Care Team Providers Care Oil Well Logging Engineer Name Role Phone Ricardo MERCER MD Primary Care Physician [phone] Insurance Providers Payer Name Policy Number Subscriber [...] F (96.8 - 99.1) Temperature (Calculated Celsius) 36.03463 degrees C (36.0 - 37.3) Pulse Rate [...] Has specimen been collected/obtained? Y Urine Specific [place] February 10, 2014 3:20pm >=1.030 H - [...] Encounters Encounter Location Date/Time Departed Emergency Room [facility] 02/10/14 3:06pm Recent Diagnosis
--- OUTSIDE RECORDS SUMMARY | 2016-09-22 16:30 | XMS REPORT | Continuity of Care Document ---
Author Author [facility] Organization [facility] Address Unknown Phone Unavailable Allergies Active Description Code Type Severity Reaction Onset Reported/Identified Relationship to Patient Clinical Status Yes morphine NKMA N/A Adverse Reaction N V hallucina 08/30/2013 Medications Problems Procedures Results Encounters ACCT No. Visit Date/Time Discharge Status Pt. Type Provider Facility Loc./Unit Complaint [id number] 04/11/2015 14:57:00 2014 23:59:00 DIS Outpatient Blaze Barrera [facility] New Surg EVAL. SURGICAL SITE L THIGH [id number] 04/03/2015 13:34:00 2014 23:59:00 DIS Outpatient Blaze Barrera [facility] New Surg HERNIA- ER LAST NIGHT. [id number] 05/16/2014 17:05:00 2014 23:59:00 DIS Outpatient Savannah Shah [facility] New IC CHEST CONGESTION,STUFFY NOSE BODY WEAKNESS [id number] 04/18/2015 11:10:00 ACT Outpatient Blaze Barrera [facility] New Surg Post Op
--- OUTSIDE RECORDS SUMMARY | 2016-09-22 16:30 | XMS REPORT | Continuity of Care Document ---
Author Author [facility] Organization [facility] Address Unknown Phone Unavailable Support Name Relationship Address Phone PRATIBHA SIDDIQUI MD Caregiver [address] [place] [address] [place] [address] Ricardo MERCER MD Caregiver [address] [place], [place] [phone] CRISTIAN PULIDO Next Of Kin [address] [place] [address] Insurance Providers Payer Name Policy Number Subscriber [...] F (96.8 - 99.1) Temperature (Calculated Celsius) 36.55930 degrees C (36.0 - 37.3) Pulse Rate [...] Has specimen been collected/obtained? Y Urine Specific [place] February 10, 2014 3:20pm >=1.030 H - [...] Encounters Encounter Location Date/Time Departed Emergency Room [facility] 03/24/14 2:51pm Departed Emergency Room [facility] 02/10/14 3:06pm Recent Diagnosis
[2016-09-22] MEDS ORDERED: HYDR-4246 PO (16:35)
[2016-09-22] MEDS ORDERED: SULF1TAB42 PO (16:35)
--- NOTE | 2016-09-22 16:35 | ERPDOC ---
Departure Disposition Decision Date: September 22, 2016 Disposition Decision Time: 16:33 Disposition: 01 DISCHARGED HOME, SELF-CARE Impression Impression Impression: Primary Impression: Abscess Severity: Mild Condition: Improved Seen By: Physician only Referrals: [facility] 2 Days Patient Instructions: Abscess (ED) Problems/Meds/Labs Reviewed?: Yes Medications reviewed and manag: Yes Follow up care ordered?: Yes Mental Status: Alert, Oriented Scripts Hydrocodone/Acetaminophen ([place] 5-325 Tablet) 5-325 Tablet 1 TAB PO Q4HR Y for PAIN for 3 Days, #18 TAB 0 Refills Prov: ETHEL JARRELL DO 09/22/16 Sulfamethoxazole/Trimethoprim (Bactrim Ds Tablet) 1 Each Tablet 2 TAB PO BID for 10 Days, #40 TAB 0 Refills Prov: ETHEL JARRELL DO 09/22/16 HPI - Skin General General Chief Complaint: Skin Rash/Abscess Stated Complaint: POSSIBLE SPIDER BITE Time Seen by Provider: 16:14 Source: patient Exam Limitations: no limitations HPI - Skin General Initial Comments 36-year-old male resents to the with the chief complaint of an abscess to his back. Patient noted onset of symptoms "a few days ago." Symptoms have been persistent in nature since onset and a gradual manner. He notes a moderate dull discomfort locally at the site of abscess. No radiation. Patient denies any other complaints or associated symptoms. He does not note any exacerbating or remitting factors currently at this time. Patient has a history of similar symptoms in the past. Occurred At: home Onset: Gradual Allergies: Coded Allergies: haloperidol (Verified Allergy, Unknown, TREMORS, 07/31/16) morphine (Verified Allergy, Unknown, 07/31/16) Past History Patient Medical History Problem List Updates: MRSA Past Medical History ENMT: allergies GI: IBS Neurological: migraines Musculoskeletal: osteoarthritis, other Psychological: bipolar, depression, other, schizophrenia Surgical History Joint: elbow, hip, shoulder Family History Family History: Negative Vaccines Hx Influenza Vaccination: No Hx Pneumococcal Vaccination: No Hx Tetanus, Diptheria, Pertuss: Yes (2007) Social History Smoking Status: Never smoker Substance Use Type: does not use Alcohol Intake: none Review of Systems Constitutional Constitutional: DENIES: chills, fever Eyes General: DENIES: erythema, exudate Lids/Accessories: DENIES: erythema, swelling Vision: DENIES: acuity, blurring ENMT Ears: DENIES: drainage, pain Hearing: DENIES: hearing loss Balance: DENIES: ataxia, falling to one side Sinuses: DENIES: congestion, pain Nose: DENIES: nosebleeds, pain Mouth/Throat: DENIES: painful swallowing, sore throat Teeth: DENIES: pain Jaw: DENIES: pain Cardiovascular Cardiac: DENIES: chest pain, dyspnea on exertion Rhythm/Rate: DENIES: irregular beat, palpitations Vascular: DENIES: pedal edema, unilateral swelling Pulmonary Respiratory: DENIES: cough, dyspnea, pleuritic chest pain, sputum GI Upper Abdomen: DENIES: nausea, pain, vomiting Lower Abdomen: DENIES: diarrhea, pain General: DENIES: burning, dysuria, frequency, urgency Musculoskeletal General: DENIES: joint pain, pain, tenderness Integumentary Skin: DENIES: itching, rash Neurological General: DENIES: change in strength, headache, numbness, weakness Psychiatric Psychiatric: DENIES: emotional instability, suicidal ideation/attempt Endocrine Endocrine: DENIES: polydipsia, polyphagia Hematologic/Lymphatic Hematologic/Lymphatic: DENIES: frequent nosebleeds, lymphadenopathy Allergic/Immunological Allergic/Immunoligical: DENIES: allergic reactions, hives Physical Exam General General Nourishment: well nourished, well developed, appears stated age, no acute distress, adult General Body Habitus: well groomed Vitals and Pain First Documented Vital Signs Date Time Temp Pulse Resp B/P Pulse Ox O2 Delivery O2 Flow Rate FiO2 09/22/16 16:07 97.9 98 20 119/75 97 Room Air Weight: Kilograms: 67.700 Height (feet): 6 Height (inches): 1.00 Triage Pain Scale: RN VS reviewed by Provider: Yes Normal Exams: Head: Normocephalic w/o trauma Eyes: Pupils are PERRLA w/ EOMI, No scleral icterus, irritation, or foreign bodies noted ENMT: No facial trauma, nasal exudates, pharyngeal erythema, or exudates are noted Dental: No fractured, loose, or missing teeth noted Neck: Full range of motion, without adenopathy, JVD, bruits or thyromegaly Chest/Resp: Clear all gray, with good airflow, and symmetry bilaterally CV: Regular rate and rhythm, without murmur or gallop, Pulses 2+ all extremities, capillary refill, <2 seconds all ext., no pedal edema noted Abdomen: Bowel sounds positive, soft, non-tender, non-distended, no hepatosplenomegaly, masses or bruits noted Lymphatic: No lymphadenopathy, or lymphedema noted Musculoskeletal: No tenderness, or deformity noted, good range of motion, all extremities Integumentary: No rashes, hives, or bruising noted, hair and nails, without abnormality Neurologic: Patient is alert, and oriented, cranial nerves, motor/sensory/ cerebellar, exams w/o gross deficits, to observation Psychiatric: Patient exhibits, appropriate attention, emotion and affect Differential Diagnoses Considering: Abrasion, Abscess, Cellulitis, Laceration Progress Results/Orders Orders Procedure Category Date Status Time Oxycodone/Apap 5/325 PHA 09/22/16 Complete (Percocet 5/325) 16:45 Medications Current ED Medications Oxycodone/ Acetaminophen (Percocet 5/325) 1 tab O ONCE PO ; Start 09/22/16 at 16:45; Stop 09/22/16 at 16:46; Status DC Progress Progress Abscess was unroofed in the emergency department and a small amount of purulent material was expressed. There is no current indication for further incision and drainage at this time. Patient is discharged home in improved condition. He is to follow up as instructed. Patient is to return to the emergency department if his condition worsens or changes in any manner. Patient and family are in agreement with the current plan of management. Patient is provided with a prescription for Bactrim DS and [place]. ETHEL JARRELL DO September 22, 2016 16:35
[2016-09-22 16:43] VITALS: BP 119/75; PULSE 98; RESP 20; TEMP 97.9; O2SAT 97
[2016-09-22] MEDS ORDERED: OXYCODONE/APAP 5mg/325mg TABLET PO ONE (16:45)
== END 2016-09-22 16:43 | disposition home or self-care (01) ==
LOC: ED 16:01
DX: L02.212 Cutaneous abscess of back [any part, except buttock and flank] (principal)